=== PATIENT | female | born 1945 | race Caucasian/White ===

== ENCOUNTER 2017-02-09 14:17 | Inpatient (IN) | payer OTHER, MEDICAID ==
[~2017-02-09] VITALS: Ht 157.5 cm; Wt 51.2 kg
[~2017-02-09 14:17] MED LIST: ALBUAER3 IN; CELE100C82 PO; DULO30CA2 PO; LOSA50TA6 PO; NOR5T PO
[2017-02-09] MEDS ORDERED: ONDANSETRON HCL 4 MG/2 ML VIAL ONE (14:22)
[2017-02-09] MEDS ORDERED: MORPHINE SULFATE 4 MG/ML SYRG ONE (14:22)
[2017-02-09] MEDS ORDERED: NITROGLYCERIN 0.4 MG SL TAB SL ONE (14:26)
[2017-02-09] MEDS ORDERED: HEPARIN SODIUM (PORCINE) 5000 UNITS/ML 1ML VIAL ONE (14:28)
[2017-02-09] MEDS ORDERED: DOPAMINE HCL IV ONE (14:34)
[2017-02-09] MEDS ORDERED: ANGIOMAX 250 MG VIAL IV ONE (14:35)
[2017-02-09] MEDS ORDERED: MIDAZOLAM HCL 1MG/1ML-2 ML VIAL ONE (14:36)
[2017-02-09] MEDS ORDERED: DOPamine 1600MCG/ML 0 ML IV ONE (14:36)
[2017-02-09] MEDS ORDERED: SODIUM CHL 0.9% 0 ML ONE (14:36)
[2017-02-09] MEDS ORDERED: fentaNYL CITRATE 100 MCG/2 ML VL ONE (14:40)
[2017-02-09] MEDS ORDERED: ONDANSETRON HCL 4 MG/2 ML VIAL IV ONE (14:45)
[2017-02-09] MEDS ORDERED: HEPARIN 1,000 UNITS/ml 1ML VIAL IV ONE (14:45)
[2017-02-09] MEDS ORDERED: NITROGLYCERIN 0.4 MG SL TAB SL PRN ×2 (14:45→15:30)
[2017-02-09] MEDS ORDERED: ASPirin 81 mg TAB PO ONE (14:45)
[2017-02-09] MEDS ORDERED: DOPamine 1600MCG/ML 250 ML IV ONE (14:45)
[2017-02-09] MEDS ORDERED: MORPHINE SULFATE 4 MG/ML SYRG IV ONE (14:45)
[2017-02-09] MEDS ORDERED: LIDOCAINE 2%HCL (LOCAL ANESTH.) INJ 20ML MDV ONE (14:46)
[2017-02-09] MEDS ORDERED: IOHEXOL 350 MG/ML 100ML IJ ONE (14:46)
[2017-02-09 15:03] LABS: Basophils # (auto) 0 uL; Basophils % (auto) 0.3 % (0.0-2.0); Eosinophils # (auto) 0.1 uL; Eosinophils % (auto) 1.2 % (0.0-7.0); Hematocrit 40.7 % (36.0-46.0); Hemoglobin 13.3 g/dL (12.2-16.2); Lymphocytes # (auto) 1.9 uL; Lymphocytes % (auto) 20.8 % (10.0-50.0); Mean Corpuscular Hemoglobin 30.1 pg (28.0-32.0); Mean Corpuscular Hgb Conc. 32.8 g/dL (32.0-36.0); Mean Corpuscular Volume 91.8 fL (80.0-100.0); Monocytes # (auto) 0.5 uL; Monocytes % (auto) 5.3 % (0.0-12.0); Neutrophils # (auto) 6.4 uL; Neutrophils % (auto) 72.4 % (37.0-80.0); Platelet Count (auto) 323 10^3/uL (140-450); White Blood Cell 8.9 10^3/uL (4.4-10.8)
[2017-02-09 15:17] LABS: Partial Thromboplastin Time 24.5 sec (22.64-33.71); Prothrombin Time 10.8 sec (9.37-12.3)
[2017-02-09 15:29] LABS: Albumin 3.6 g/dL (3.4-5.0); BUN/Creatinine Ratio 18.7; Bilirubin, Total 0.2 mg/dL (0.2-1.0); Calcium 10.1 mg/dL (8.5-10.1); Magnesium 2.1 mg/dL (1.6-2.6); Potassium 3.7 mmol/L (3.5-5.1); Total Protein 7.3 g/dL (6.4-8.2)
[2017-02-09] MEDS ORDERED: MORPHINE SULF INJ 2 MG/ML SYRINGE 1ML IV PRN (15:30)
[2017-02-09] MEDS ORDERED: ONDANSETRON HCL 4 MG/2 ML VIAL IV PRN (15:30)
[2017-02-09] MEDS ORDERED: CLOP75TA28 PO (15:42)
[2017-02-09] MEDS ORDERED: METO-169 PO (15:42)
[2017-02-09] MEDS ORDERED: ENA10T PO (15:42)
[2017-02-09] MEDS ORDERED: TRIA75TA55 PO (15:42)
[2017-02-09] MEDS ORDERED: ATO40T PO (15:42)
[2017-02-09] MEDS ORDERED: DULoxetine HCL 30 MG CAP PO ONE (16:00)
[2017-02-09] MEDS ORDERED: CLOPIDOGREL BISULFATE 75 MG TAB PO ONE (16:00)
[2017-02-09] MEDS ORDERED: TRIAMTERENE/HCTZ 75/50MG TABLET PO ONE (16:00)
[2017-02-09] MEDS ORDERED: LOSARTAN POTASSIUM 50 MG TAB PO ONE (16:00)
[2017-02-09] MEDS ORDERED: CELECOXIB 100 MG CAP PO ONE (16:00)
[2017-02-09] MEDS: D5W/SOD CHL 0.45% 1,000 ML IV SCH (16:45)
[2017-02-09] MEDS: FAMOTIDINE (10MG/ML) 2ML VL IV SCH (16:47)
[2017-02-09] MEDS: HYDROcodone-ACET 5/325MG TAB PO PRN ×2 (17:49→23:04)
[2017-02-09 17:51] VITALS: BP 103/43
[2017-02-09 20:00] VITALS: BP 95/42
[2017-02-09] MEDS: ENALAPRIL MALEATE 10 MG TAB PO SCH (21:04)
[2017-02-09] MEDS: METOPROLOL SUCCINATE XL 50 MG TAB PO SCH (21:04)
[2017-02-09] MEDS ORDERED: FAMOTIDINE (10MG/ML) 2ML VL IV SCH (22:00)
[2017-02-09 23:56] VITALS: BP 113/50
[2017-02-10 04:00] VITALS: BP 129/63
[2017-02-10] MEDS: ACETAMINOPHEN 500 MG TAB PO PRN ×2 (04:04→18:41)
[2017-02-10] MEDS: LORazepam 0.5 MG TAB PO PRN ×3 (04:04→17:56)
[2017-02-10] MEDS: D5W/SOD CHL 0.45% 1,000 ML IV SCH (05:33)
[2017-02-10 08:00] VITALS: BP 149/66
[2017-02-10] MEDS: HYDROcodone-ACET 5/325MG TAB PO PRN ×3 (08:03→20:01)
[2017-02-10] MEDS: TRIAMTERENE/HCTZ 75/50MG TABLET PO SCH (10:00)
[2017-02-10] MEDS: ENALAPRIL MALEATE 10 MG TAB PO SCH ×2 (10:00→21:17)
[2017-02-10] MEDS: METOPROLOL SUCCINATE XL 50 MG TAB PO SCH ×2 (10:00→21:16)
[2017-02-10] MEDS: FAMOTIDINE (10MG/ML) 2ML VL IV SCH (10:22)
[2017-02-10] MEDS: CELECOXIB 100 MG CAP PO SCH (10:22)
[2017-02-10] MEDS: DULoxetine HCL 30 MG CAP PO SCH (10:22)
[2017-02-10] MEDS: CLOPIDOGREL BISULFATE 75 MG TAB PO SCH (10:23)
[2017-02-10] MEDS: LOSARTAN POTASSIUM 50 MG TAB PO SCH (10:23)
[2017-02-10 12:00] VITALS: BP 159/72
[2017-02-10 16:00] VITALS: BP 152/66
[2017-02-10 20:00] VITALS: BP 178/70
[2017-02-11] VITALS: BP 170/74
[2017-02-11] MEDS ORDERED: cloNIDine HCL 0.1 MG TAB PO ONE (00:15)
[2017-02-11] MEDS: ACETAMINOPHEN 500 MG TAB PO PRN (01:30)
[2017-02-11] MEDS: LORazepam 0.5 MG TAB PO PRN ×3 (01:30→16:48)
[2017-02-11 04:00] VITALS: BP 112/44
[2017-02-11] MEDS: HYDROcodone-ACET 5/325MG TAB PO PRN (07:49)
[2017-02-11 08:00] VITALS: BP 164/59
[2017-02-11] MEDS: METOPROLOL SUCCINATE XL 50 MG TAB PO SCH (10:00)
[2017-02-11] MEDS: TRIAMTERENE/HCTZ 75/50MG TABLET PO SCH (10:00)
[2017-02-11] MEDS: FAMOTIDINE (10MG/ML) 2ML VL IV SCH (10:06)
[2017-02-11] MEDS: DULoxetine HCL 30 MG CAP PO SCH (10:07)
[2017-02-11] MEDS: CLOPIDOGREL BISULFATE 75 MG TAB PO SCH (10:07)
[2017-02-11] MEDS: CELECOXIB 100 MG CAP PO SCH (10:08)
[2017-02-11] MEDS: ENALAPRIL MALEATE 10 MG TAB PO SCH (10:09)
[2017-02-11] MEDS: LOSARTAN POTASSIUM 50 MG TAB PO SCH (10:09)
[2017-02-11 12:00] VITALS: BP 167/59
[2017-02-11] MEDS ORDERED: HYDROmorphone HCL 2 MG/ML VL IV ONE (14:15)
[2017-02-11] MEDS ORDERED: methylPREDNISolone SOD SUCC 125 MG/2 ML VL IV ONE (14:15)
[2017-02-11] MEDS ORDERED: METHOCARBAMOL 500 MG TAB PO ONE (14:15)
[2017-02-11 16:00] VITALS: BP_SYST 142; BP_SYST 159; BP_DIAS 55
== END 2017-02-11 18:45 | disposition home or self-care (01) | DRG 280 ==
LOC: EDBD 14:17 → ER 14:20 → CATH 14:44 → ICU CENTRL 14:45 → DOU IN ICU 17:50
PROVIDERS: ADMIT Specialist; ATTEND Internal Medicine
PROC: 4A023N7 Measurement of Cardiac Sampling and Pressure, Left Heart, Percutaneous Approach (ICD-10-PCS; principal; 2017-02-09)
PROC: B2111ZZ Fluoroscopy of Multiple Coronary Arteries using Low Osmolar Contrast (ICD-10-PCS; 2017-02-09)
PROC: B2151ZZ Fluoroscopy of Left Heart using Low Osmolar Contrast (ICD-10-PCS; 2017-02-09)
PROC: 5A2204Z Restoration of Cardiac Rhythm, Single (ICD-10-PCS; 2017-02-09)
DX: I21.09 ST elevation (STEMI) myocardial infarction involving other coronary artery of anterior wall (principal); I49.01 Ventricular fibrillation; F17.210 Nicotine dependence, cigarettes, uncomplicated; I10 Essential (primary) hypertension; F41.9 Anxiety disorder, unspecified; I25.10 Atherosclerotic heart disease of native coronary artery without angina pectoris; F32.9 Major depressive disorder, single episode, unspecified; M19.90 Unspecified osteoarthritis, unspecified site; J44.9 Chronic obstructive pulmonary disease, unspecified; Z82.0 Family history of epilepsy and other diseases of the nervous system; Z82.49 Family history of ischemic heart disease and other diseases of the circulatory system; Z98.61 Coronary angioplasty status
CPT/HCPCS: 36415; 71010; 80053; 82962; 83735; 84484; 85025; 85610; 85730; 87081; 93005; 93458; 96372; 96374; 96375; 99152; 99291; J1265; J2250; J2405; J3490

== ENCOUNTER 2017-02-13 10:01 | Emergency (ER) | payer OTHER, MEDICAID ==
[~2017-02-13] VITALS: Ht 165.1 cm; Wt 63.5 kg
[~2017-02-13 10:01] MED LIST changes: +ATO40T PO; +CLOP75TA28 PO; +ENA10T PO; +METO-169 PO; +TRIA75TA55 PO
[2017-02-13] MEDS ORDERED: LORazepam 2MG/ML-1ML VIAL IV ONE (10:15)
[2017-02-13] MEDS ORDERED: cloNIDine HCL 0.1 MG TAB PO ONE (10:45)
[2017-02-13 10:53] LABS: Urine Bilirubin Negative (Negative); Urine Blood Negative /uL (Negative); Urine Color Yellow (Yellow); Urine Glucose Normal (Normal); Urine Ketone Negative (Negative); Urine Nitrite Negative (Negative); Urine RBC 1 /hpf (0 - 4); Urine Squamous Epithelial Cell FEW /hpf (<5); Urine Urobilinogen Normal (Negative); Urine pH 5.5 (5.0-8.0)
[2017-02-13 12:37] VITALS: BP 137/67
== END 2017-02-13 14:04 | disposition home or self-care (01) ==
LOC: EDBD 10:01 → ER 10:04
DX: F41.9 Anxiety disorder, unspecified (principal); N39.0 Urinary tract infection, site not specified; I10 Essential (primary) hypertension; J44.9 Chronic obstructive pulmonary disease, unspecified; E78.5 Hyperlipidemia, unspecified; M06.9 Rheumatoid arthritis, unspecified; I25.10 Atherosclerotic heart disease of native coronary artery without angina pectoris; Z90.710 Acquired absence of both cervix and uterus; F17.210 Nicotine dependence, cigarettes, uncomplicated; F12.10 Cannabis abuse, uncomplicated; Z90.49 Acquired absence of other specified parts of digestive tract; Z82.49 Family history of ischemic heart disease and other diseases of the circulatory system; Z79.899 Other long term (current) drug therapy
CPT/HCPCS: 36415; 81001; 84484; 93005; 96374; 99285; J2060

== ENCOUNTER 2017-02-14 14:21 | Emergency (ER) | payer OTHER, MEDICAID ==
[~2017-02-14] VITALS: Ht 157.5 cm; Wt 63.5 kg
[2017-02-14] MEDS ORDERED: LORazepam 2MG/ML-1ML VIAL IM ONE (16:30)
[2017-02-14 17:05] VITALS: BP 140/63
[2017-02-14] MEDS ORDERED: HYDROcodone-ACET 10/325MG TAB PO ONE (17:30)
== END 2017-02-14 18:20 | disposition home or self-care (01) ==
LOC: EDBD 14:21 → ER 14:27
DX: F41.9 Anxiety disorder, unspecified (principal); I10 Essential (primary) hypertension; J44.9 Chronic obstructive pulmonary disease, unspecified; F32.9 Major depressive disorder, single episode, unspecified; F17.210 Nicotine dependence, cigarettes, uncomplicated; F12.10 Cannabis abuse, uncomplicated; M19.90 Unspecified osteoarthritis, unspecified site; I25.810 Atherosclerosis of coronary artery bypass graft(s) without angina pectoris; Z79.899 Other long term (current) drug therapy
CPT/HCPCS: 96372; 99283; J2060

== ENCOUNTER 2017-08-08 01:22 | Inpatient (IN) | payer OTHER, MEDICAID ==
[~2017-08-08] VITALS: Ht 157.5 cm; Wt 51.9 kg
[~2017-08-08 01:22] MED LIST changes: +HYDR-4683 PO; -NOR5T PO
[2017-08-08] MEDS ORDERED: ONDANSETRON ODT 4 MG TAB PO ONE ×2 (01:36→01:45)
[2017-08-08] MEDS ORDERED: cloNIDine HCL 0.1 MG TAB ONE (01:36)
[2017-08-08 01:43] LABS: Basophils # (auto) 0 uL; Basophils % (auto) 0.3 % (0.0-2.0); Eosinophils # (auto) 0.1 uL; Eosinophils % (auto) 0.5 % (0.0-7.0); Hematocrit 47.3 % (36.0-46.0); Hemoglobin 16.1 g/dL (12.2-16.2); Lymphocytes # (auto) 1.6 uL; Lymphocytes % (auto) 11.6 % (10.0-50.0); Mean Corpuscular Hemoglobin 31.6 pg (28.0-32.0); Mean Corpuscular Volume 92.9 fL (80.0-100.0); Monocytes # (auto) 0.4 uL; Neutrophils % (auto) 84.6 % (37.0-80.0); Nucleated Red Blood Cells % 0.1 %; Platelet Count (auto) 320 10^3/uL (140-450); Red Blood Cells 5.08 10^6/uL (4.0-5.20); White Blood Cell 14.2 10^3/uL (4.4-10.8)
[2017-08-08] MEDS ORDERED: cloNIDine HCL 0.1 MG TAB PO ONE ×2 (01:45→13:15)
[2017-08-08 01:59] LABS: INR 1.02 (0.9-1.15); Partial Thromboplastin Time 22.6 sec (22.64-33.71); Prothrombin Time 11.1 sec (9.37-12.3)
[2017-08-08 02:01] LABS: Albumin 3.7 g/dL (3.4-5.0); Amylase 32 U/L (25-115); Anion Gap 14 (5-15); BUN/Creatinine Ratio 13.6; Blood Urea Nitrogen 11 mg/dL (7-18); Calcium 10.4 mg/dL (8.5-10.1); Carbon Dioxide 22 mmol/L (21-32); Chloride 102 mmol/L (98-107); GFR African American 89 mL/min; GFR Non-African American 74 mL/min; Glucose 207 mg/dL (74-106); Lipase 87 U/L (73-393); Sodium 138 mmol/L (136-145)
[2017-08-08 02:04] LABS: Alanine Aminotransferase 23 U/L (13-56); Alkaline Phosphatase 107 U/L (45-117); Aspartate Aminotransferase 25 U/L (15-37); Bilirubin, Total 0.5 mg/dL (0.2-1.0); Total Protein 8.2 g/dL (6.4-8.2)
[2017-08-08] MEDS ORDERED: LORazepam 2MG/ML-1ML VIAL IV ONE (02:30)
[2017-08-08] MEDS ORDERED: KETOROLAC TROMETH 30 MG/ML 1ML VIAL IV ONE (02:30)
[2017-08-08] MEDS ORDERED: LABETALOL HCL 5 MG/ML ML 20ML VIAL IV ONE (03:30)
[2017-08-08] MEDS ORDERED: metroNIDAZOLE 500MG/100ML 100 ML IV ONE (04:00)
[2017-08-08] MEDS ORDERED: cefTRIAXone 1GM/50ML D5W 50 ML IV ONE (04:00)
[2017-08-08] MEDS: POTASSIUM CHL 20MEQ/50ML 50 ML IV SCH ×2 (04:24→05:57)
[2017-08-08 04:47] LABS: Lactic Acid w/Reflex 2.3 mmol/L (0.4-2.0)
[2017-08-08] MEDS: NICARDIPINE 25MG/250ML BAG KIT 250 ML IV SCH ×3 (05:03→14:30)
[2017-08-08 06:48] LABS: Urine Bacteria FEW /hpf (None Seen); Urine Blood TRACE /uL (Negative); Urine Specific Gravity 1.007 (1.001-1.035); Urine WBC <1 /hpf (0 - 5)
[2017-08-08] MEDS ORDERED: DEXTROSE (50%) 50ML SYRG IV PRN (07:15)
[2017-08-08] MEDS ORDERED: ONDANSETRON HCL 4 MG/2 ML VIAL IV PRN (07:15)
[2017-08-08] MEDS: LORazepam 2MG/ML-1ML VIAL IV PRN (08:05)
[2017-08-08] MEDS: IPRATROPIUM BROM 0.5 MG/2.5ML INH SOL NEB SCH ×3 (08:30→18:16)
[2017-08-08] MEDS: ALBUTEROL SULF 2.5 MG/0.5ML(0.5%) NEB SOLN NEB SCH ×3 (08:30→18:16)
[2017-08-08] MEDS ORDERED: ENALAPRIL MALEATE 10 MG TAB PO SCH (10:00)
[2017-08-08] MEDS ORDERED: METOPROLOL SUCCINATE XL 50 MG TAB PO SCH (10:00)
[2017-08-08] MEDS: GABAPENTIN 300 MG CAP PO SCH ×2 (10:17→21:51)
[2017-08-08] MEDS: LOSARTAN POTASSIUM 50 MG TAB PO SCH (10:18)
[2017-08-08] MEDS: DULoxetine HCL 30 MG CAP PO SCH (10:18)
[2017-08-08] MEDS: CLOPIDOGREL BISULFATE 75 MG TAB PO SCH (10:18)
[2017-08-08] MEDS: InsuLIN REG 1unit/0.01ml Soln (100units/ml) SC SCH ×3 (11:30→21:59)
[2017-08-08] MEDS: ACCU-CHEK COMFORT CURVE STRIP VI SCH ×3 (11:34→21:59)
[2017-08-08] MEDS ORDERED: LABETALOL HCL 200 MG TAB PO ONE (13:15)
[2017-08-08] MEDS: HYDROcodone-ACET 10/325MG TAB PO PRN ×2 (13:45→21:51)
[2017-08-08 14:21] VITALS: BP 153/116
[2017-08-08] MEDS ORDERED: LABETALOL HCL 200 MG TAB PO PRN (19:30)
[2017-08-08 20:00] VITALS: BP 100/46
[2017-08-08 21:45] VITALS: BP 100/46
[2017-08-08] MEDS: cloNIDine HCL 0.1 MG TAB PO SCH (21:51)
[2017-08-08] MEDS: ATORVASTATIN 20 MG TAB PO SCH (21:51)
[2017-08-08] MEDS ORDERED: cloNIDine HCL 0.1 MG TAB PO SCH (22:00)
[2017-08-08] MEDS ORDERED: LABETALOL HCL 200 MG TAB PO SCH (22:00)
[2017-08-09] MEDS ORDERED: ASPI81TA27 PO (00:52)
[2017-08-09] MEDS ORDERED: CLON0.1T PO (00:52)
[2017-08-09] MEDS: ALBUTEROL SULF 2.5 MG/0.5ML(0.5%) NEB SOLN NEB SCH ×4 (01:00→18:47)
[2017-08-09] MEDS: IPRATROPIUM BROM 0.5 MG/2.5ML INH SOL NEB SCH ×4 (01:00→18:47)
[2017-08-09 05:16] VITALS: BP 123/50
[2017-08-09] MEDS: cloNIDine HCL 0.1 MG TAB PO SCH ×3 (05:38→22:46)
[2017-08-09] MEDS: InsuLIN REG 1unit/0.01ml Soln (100units/ml) SC SCH ×4 (06:04→22:00)
[2017-08-09] MEDS: ACCU-CHEK COMFORT CURVE STRIP VI SCH ×4 (06:04→23:11)
[2017-08-09] MEDS: HYDROcodone-ACET 10/325MG TAB PO PRN ×2 (06:29→16:43)
[2017-08-09 08:55] VITALS: BP 119/60
[2017-08-09] MEDS: GABAPENTIN 300 MG CAP PO SCH ×2 (10:31→22:46)
[2017-08-09] MEDS: CLOPIDOGREL BISULFATE 75 MG TAB PO SCH (10:31)
[2017-08-09] MEDS: LOSARTAN POTASSIUM 50 MG TAB PO SCH (10:31)
[2017-08-09] MEDS: DULoxetine HCL 30 MG CAP PO SCH (10:31)
[2017-08-09 12:26] VITALS: BP 139/56
[2017-08-09 16:38] VITALS: BP 151/61
[2017-08-09 21:34] VITALS: BP 140/122
[2017-08-09] MEDS: ATORVASTATIN 20 MG TAB PO SCH (22:46)
[2017-08-09] MEDS: LORazepam 2MG/ML-1ML VIAL IV PRN (22:56)
[2017-08-10] MEDS: ALBUTEROL SULF 2.5 MG/0.5ML(0.5%) NEB SOLN NEB SCH ×3 (00:07→10:57)
[2017-08-10] MEDS: IPRATROPIUM BROM 0.5 MG/2.5ML INH SOL NEB SCH ×3 (00:07→10:57)
[2017-08-10] MEDS: HYDROcodone-ACET 10/325MG TAB PO PRN (04:34)
[2017-08-10] MEDS: cloNIDine HCL 0.1 MG TAB PO SCH (05:18)
[2017-08-10 05:25] VITALS: BP 188/79
[2017-08-10 05:30] VITALS: BP 164/95
[2017-08-10 06:30] VITALS: BP 142/67
[2017-08-10] MEDS: InsuLIN REG 1unit/0.01ml Soln (100units/ml) SC SCH ×2 (06:57→11:30)
[2017-08-10] MEDS: ACCU-CHEK COMFORT CURVE STRIP VI SCH ×2 (06:58→11:30)
[2017-08-10 07:30] VITALS: BP 142/67
[2017-08-10 09:00] VITALS: BP 186/69
[2017-08-10] MEDS: LOSARTAN POTASSIUM 50 MG TAB PO SCH (09:00)
[2017-08-10] MEDS: DULoxetine HCL 30 MG CAP PO SCH (09:02)
[2017-08-10] MEDS: GABAPENTIN 300 MG CAP PO SCH (09:02)
[2017-08-10] MEDS: CLOPIDOGREL BISULFATE 75 MG TAB PO SCH (09:02)
[2017-08-10] MEDS: LORazepam 2MG/ML-1ML VIAL IV PRN (10:37)
[2017-08-10 11:14] VITALS: BP 186/69
== END 2017-08-10 13:00 | disposition home or self-care (01) | DRG 872 ==
LOC: EDBD 01:22 → ER 01:24 → TELE 01:25 → TELE-WESTW 19:55
PROVIDERS: ADMIT Nurse Practitioner Family; ATTEND Internal Medicine
DX: A41.9 Sepsis, unspecified organism (principal); J44.1 Chronic obstructive pulmonary disease with (acute) exacerbation; F17.210 Nicotine dependence, cigarettes, uncomplicated; F41.0 Panic disorder [episodic paroxysmal anxiety]; G89.4 Chronic pain syndrome; I10 Essential (primary) hypertension; I25.10 Atherosclerotic heart disease of native coronary artery without angina pectoris; M48.00 Spinal stenosis, site unspecified; M19.90 Unspecified osteoarthritis, unspecified site; F32.9 Major depressive disorder, single episode, unspecified; Z90.710 Acquired absence of both cervix and uterus; Z82.0 Family history of epilepsy and other diseases of the nervous system; Z82.49 Family history of ischemic heart disease and other diseases of the circulatory system
CPT/HCPCS: 36415; 71010; 80053; 81001; 82150; 82962; 83036; 83605; 83690; 83735; 83880; 84484; 85025; 85610; 85730; 87040; 93005; 94640; 96361; 96365; 96367; 96375; J0696; J1815; J1885; J2405; J3490; Q0162

== ENCOUNTER 2017-11-27 19:54 | Inpatient (IN) | payer OTHER, MEDICAID ==
[~2017-11-27] VITALS: Ht 160 cm; Wt 50.5 kg
[~2017-11-27 19:54] MED LIST changes: +ASPI81TA27 PO; +CLON0.1T PO; -CLOP75TA28 PO; -ENA10T PO; -METO-169 PO; -TRIA75TA55 PO
[2017-11-27 20:47] LABS: Eosinophils # (auto) 0 uL; Nucleated Red Blood Cells % 0.4 %
[2017-11-27 20:48] LABS: Basophils # (auto) 0.5 uL; Basophils % (auto) 1.8 % (0.0-2.0); Hemoglobin 19.3 g/dL (12.2-16.2); Lymphocytes % (auto) 7.7 % (10.0-50.0); Mean Corpuscular Hemoglobin 30.6 pg (28.0-32.0); Mean Corpuscular Hgb Conc. 32.5 g/dL (32.0-36.0); Mean Corpuscular Volume 94.3 fL (80.0-100.0); Monocytes # (auto) 1.3 uL; Monocytes % (auto) 4.8 % (0.0-12.0); Neutrophils # (auto) 22.4 uL; Neutrophils % (auto) 85.7 % (37.0-80.0); Platelet Count (auto) 411 10^3/uL (140-450); Red Blood Cells 6.32 10^6/uL (4.0-5.20); Red Cell Distribution Width 15.5 % (11.8-14.3); White Blood Cell 26.2 10^3/uL (4.4-10.8)
[2017-11-27 20:49] LABS: INR 1.09 (0.9-1.15); Prothrombin Time 11.9 sec (9.37-12.3)
[2017-11-27 20:50] LABS: Hematocrit 59.6 % (36.0-46.0)
[2017-11-27 20:59] LABS: Sodium 136 mmol/L (136-145)
[2017-11-27 21:00] LABS: Anion Gap 19 (5-15); Blood Urea Nitrogen 20 mg/dL (7-18); Carbon Dioxide 16 mmol/L (21-32); Chloride 101 mmol/L (98-107); Glucose 225 mg/dL (74-106)
[2017-11-27 21:01] LABS: Alanine Aminotransferase 25 U/L (13-56); Alkaline Phosphatase 111 U/L (45-117); Aspartate Aminotransferase 49 U/L (15-37); BUN/Creatinine Ratio 10.2; GFR African American 32 mL/min; GFR Non-African American 26 mL/min
[2017-11-27 21:02] LABS: Calcium 9.4 mg/dL (8.5-10.1)
[2017-11-27 21:03] LABS: Bilirubin, Total < 0.2 mg/dL (0.2-1.0); Total Protein 8.6 g/dL (6.4-8.2)
[2017-11-27 21:04] LABS: Albumin 3.5 g/dL (3.4-5.0); Magnesium 1.9 mg/dL (1.6-2.6)
[2017-11-27 21:05] LABS: Urine Bacteria NONE SEEN /hpf (None Seen); Urine Blood 2+ /uL (Negative); Urine Mucus FEW (None Seen); Urine WBC 17 /hpf (0 - 5)
[2017-11-27 21:07] LABS: Potassium 2.9 mmol/L (3.5-5.1)
[2017-11-27] MEDS ORDERED: MORPHINE SULFATE 4 MG/ML SYR/VIAL IV ONE (21:15)
[2017-11-27] MEDS ORDERED: SODIUM CHLORIDE 0.9% 1,000 ML IV ONE (21:15)
[2017-11-27] MEDS ORDERED: ASPirin 81 mg TAB PO ONE (21:15)
[2017-11-27] MEDS ORDERED: ONDANSETRON HCL 4 MG/2 ML VIAL IV ONE (21:15)
[2017-11-27] MEDS ORDERED: POTASSIUM CHL 20MEQ/100ML 200 ML IV ONE (21:17)
[2017-11-27] MEDS: POTASSIUM CHL 20MEQ/100ML 100 ML IV SCH ×2 (21:32→23:22)
[2017-11-27] MEDS ORDERED: MORPHINE SULFATE 4 MG/ML SYR/VIAL IV PRN (23:45)
[2017-11-27] MEDS ORDERED: ONDANSETRON HCL 4 MG/2 ML VIAL IV PRN (23:45)
[2017-11-27] MEDS ORDERED: NITROGLYCERIN 0.4 MG SL TAB SL PRN (23:45)
[2017-11-28] MEDS: MORPHINE SULFATE 4 MG/ML SYR/VIAL IV PRN (00:40)
[2017-11-28 00:48] LABS: BUN/Creatinine Ratio 17.1; Potassium 3.8 mmol/L (3.5-5.1)
[2017-11-28] MEDS ORDERED: clonazePAM 0.5 MG TAB PO PRN (04:15)
[2017-11-28] MEDS ORDERED: ENOXAPARIN SOD 60 MG/0.6 ML SYRINGE SC ONE ×2 (04:15→04:28)
[2017-11-28] MEDS ORDERED: HYDROcodone-ACET 5/325MG TAB PO PRN (04:45)
[2017-11-28] MEDS ORDERED: ACETAMINOPHEN 500 MG TAB PO PRN (04:45)
[2017-11-28] MEDS ORDERED: cefTRIAXone 1GM/10ml IVPUSH 10 ML IV ONE (06:00)
[2017-11-28 06:49] LABS: Hemoglobin 17.9 g/dL (12.2-16.2); Platelet Count (auto) 381 10^3/uL (140-450)
[2017-11-28 06:51] LABS: Hematocrit 53.6 % (36.0-46.0); Mean Corpuscular Hemoglobin 31.4 pg (28.0-32.0); Mean Corpuscular Hgb Conc. 33.5 g/dL (32.0-36.0); Mean Corpuscular Volume 93.7 fL (80.0-100.0); Red Blood Cells 5.72 10^6/uL (4.0-5.20); Red Cell Distribution Width 15.2 % (11.8-14.3); White Blood Cell 26.1 10^3/uL (4.4-10.8)
[2017-11-28 07:06] LABS: Eosinophils % (manual) 0 (0-7)
[2017-11-28 07:07] LABS: Basophils % (manual) 0 (0.0-2.0); Blast Cells 0; Metamyelocytes % 0; Myelocytes % 0; Promyelocytes % 0; Reactive Lymphocytes 0
[2017-11-28 08:10] LABS: Band Neutrophils % (manual) 3; Lymphocytes % (manual) 8 (10.0-50.0); Monocytes % (manual) 5 (0-12)
[2017-11-28] MEDS: ASPirin-EC 81 mg tab PO SCH (09:40)
[2017-11-28] MEDS: FUROSEMIDE 40 MG/4 ML VIAL IV SCH (09:43)
[2017-11-28] MEDS: GABAPENTIN 300 MG CAP PO SCH ×2 (09:44→22:00)
[2017-11-28] MEDS: METOPROLOL TARTRATE 25 MG TAB PO SCH ×2 (09:44→22:00)
[2017-11-28 11:17] LABS: Hemoglobin 18.1 g/dL (12.2-16.2)
[2017-11-28 11:19] LABS: Hematocrit 54.8 % (36.0-46.0)
[2017-11-28] MEDS: ATORVASTATIN 20 MG TAB PO SCH (22:00)
[2017-11-28] MEDS: PANTOPRAZOLE 40 MG/10 ML VIAL IV SCH (22:00)
[2017-11-29] MEDS ORDERED: cefTRIAXone 1GM/10ml IVPUSH 10 ML IV SCH (09:00)
[2017-11-29 09:21] LABS: Platelet Count (auto) 266 10^3/uL (140-450)
[2017-11-29 09:24] LABS: Hematocrit 51.1 % (36.0-46.0); Hemoglobin 16.4 g/dL (12.2-16.2); Mean Corpuscular Hgb Conc. 32.1 g/dL (32.0-36.0); Mean Corpuscular Volume 96.4 fL (80.0-100.0); Red Cell Distribution Width 15.9 % (11.8-14.3)
[2017-11-29] MEDS: MORPHINE SULFATE 4 MG/ML SYR/VIAL IV PRN ×5 (09:57→22:38)
[2017-11-29] MEDS: FUROSEMIDE 40 MG/4 ML VIAL IV SCH (10:27)
[2017-11-29] MEDS: ASPirin-EC 81 mg tab PO SCH (10:27)
[2017-11-29] MEDS: PANTOPRAZOLE 40 MG/10 ML VIAL IV SCH ×2 (10:27→22:39)
[2017-11-29] MEDS: METOPROLOL TARTRATE 25 MG TAB PO SCH ×2 (10:28→22:40)
[2017-11-29] MEDS: GABAPENTIN 300 MG CAP PO SCH ×2 (10:28→22:40)
[2017-11-29 10:31] LABS: White Blood Cell 31.3 10^3/uL (4.4-10.8)
[2017-11-29 10:32] LABS: Band Neutrophils % (manual) 0; Basophils % (manual) 0 (0.0-2.0); Blast Cells 0; Eosinophils % (manual) 0 (0-7); Metamyelocytes % 0; Myelocytes % 0; Promyelocytes % 0; Reactive Lymphocytes 0
[2017-11-29 12:30] VITALS: BP 148/72
[2017-11-29 14:30] LABS: Lymphocytes % (manual) 5 (10.0-50.0); Monocytes % (manual) 12 (0-12)
[2017-11-29] MEDS: DOXYCYCLINE HYC 100MG/250ML 250 ML IV SCH (15:15)
[2017-11-29 16:58] VITALS: BP 136/59
[2017-11-29] MEDS: ATORVASTATIN 20 MG TAB PO SCH (22:39)
[2017-11-29 22:51] VITALS: BP 152/71
[2017-11-30] MEDS: DOXYCYCLINE HYC 100MG/250ML 250 ML IV SCH ×2 (03:22→15:00)
[2017-11-30 05:27] VITALS: BP 134/69
[2017-11-30 06:40] LABS: Basophils # (auto) 0 uL; Basophils % (auto) 0.1 % (0.0-2.0); Eosinophils # (auto) 0 uL; Eosinophils % (auto) 0.1 % (0.0-7.0); Hematocrit 42.5 % (36.0-46.0); Hemoglobin 14.1 g/dL (12.2-16.2); Lymphocytes # (auto) 1.3 uL; Lymphocytes % (auto) 7.5 % (10.0-50.0); Mean Corpuscular Hemoglobin 30.9 pg (28.0-32.0); Mean Corpuscular Hgb Conc. 33.2 g/dL (32.0-36.0); Mean Corpuscular Volume 93.2 fL (80.0-100.0); Monocytes # (auto) 1.2 uL; Monocytes % (auto) 6.8 % (0.0-12.0); Neutrophils # (auto) 14.6 uL; Neutrophils % (auto) 85.5 % (37.0-80.0); Platelet Count (auto) 273 10^3/uL (140-450); Red Blood Cells 4.56 10^6/uL (4.0-5.20); Red Cell Distribution Width 14.8 % (11.8-14.3); White Blood Cell 17.1 10^3/uL (4.4-10.8)
[2017-11-30 06:52] LABS: Albumin 2.5 g/dL (3.4-5.0); BUN/Creatinine Ratio 30.5; Bilirubin, Total 0.3 mg/dL (0.2-1.0); Calcium 8.6 mg/dL (8.5-10.1); Potassium 3.8 mmol/L (3.5-5.1); Total Protein 6.7 g/dL (6.4-8.2)
[2017-11-30] MEDS: MORPHINE SULFATE 4 MG/ML SYR/VIAL IV PRN ×4 (09:06→22:07)
[2017-11-30 09:07] VITALS: BP 155/82
[2017-11-30] MEDS: ASPirin-EC 81 mg tab PO SCH (09:51)
[2017-11-30] MEDS: PANTOPRAZOLE 40 MG/10 ML VIAL IV SCH ×2 (09:51→22:08)
[2017-11-30] MEDS: LEVOFLOXACIN 250MG 50 ML IV SCH (09:51)
[2017-11-30] MEDS: FUROSEMIDE 40 MG/4 ML VIAL IV SCH (09:51)
[2017-11-30] MEDS: METOPROLOL TARTRATE 25 MG TAB PO SCH ×2 (09:52→22:16)
[2017-11-30] MEDS: GABAPENTIN 300 MG CAP PO SCH ×2 (09:52→22:08)
[2017-11-30 12:49] VITALS: BP 129/82
[2017-11-30 17:41] VITALS: BP 145/66
[2017-11-30 22:00] VITALS: BP 159/76
[2017-11-30] MEDS: ATORVASTATIN 20 MG TAB PO SCH (22:08)
[2017-12-01] MEDS: DOXYCYCLINE HYC 100MG/250ML 250 ML IV SCH ×2 (03:10→15:00)
[2017-12-01] MEDS: MORPHINE SULFATE 4 MG/ML SYR/VIAL IV PRN ×2 (03:19→10:17)
[2017-12-01 05:30] VITALS: BP 144/90
[2017-12-01 06:41] LABS: Basophils # (auto) 0 uL; Basophils % (auto) 0.1 % (0.0-2.0); Eosinophils # (auto) 0 uL; Eosinophils % (auto) 0.3 % (0.0-7.0); Hematocrit 40.9 % (36.0-46.0); Hemoglobin 13.5 g/dL (12.2-16.2); Lymphocytes # (auto) 1.9 uL; Lymphocytes % (auto) 11.7 % (10.0-50.0); Mean Corpuscular Hemoglobin 30.9 pg (28.0-32.0); Mean Corpuscular Hgb Conc. 32.9 g/dL (32.0-36.0); Monocytes # (auto) 1.2 uL; Monocytes % (auto) 7.3 % (0.0-12.0); Neutrophils % (auto) 80.6 % (37.0-80.0); Nucleated Red Blood Cells % 0.1 %; Platelet Count (auto) 278 10^3/uL (140-450); Red Blood Cells 4.36 10^6/uL (4.0-5.20); Red Cell Distribution Width 14.3 % (11.8-14.3); White Blood Cell 16.1 10^3/uL (4.4-10.8)
[2017-12-01 07:06] LABS: Potassium 3.3 mmol/L (3.5-5.1)
[2017-12-01 07:11] LABS: Albumin 2.5 g/dL (3.4-5.0)
[2017-12-01 07:15] LABS: Bilirubin, Total 0.3 mg/dL (0.2-1.0); Total Protein 6.4 g/dL (6.4-8.2)
[2017-12-01] MEDS ORDERED: SODIUM CHLORIDE LOCK 10 ML ONE (08:02)
[2017-12-01] MEDS ORDERED: ONDANSETRON HCL 4 MG/2 ML VIAL ONE (08:02)
[2017-12-01] MEDS ORDERED: MIDAZOLAM HCL 1MG/1ML-2 ML VIAL ONE (08:02)
[2017-12-01] MEDS ORDERED: PROPOFOL 10 MG/ML 20 ML IV ONE (08:02)
[2017-12-01] MEDS ORDERED: fentaNYL CITRATE 100 MCG/2 ML VL ONE (08:02)
[2017-12-01 08:29] VITALS: BP 164/80
[2017-12-01] MEDS ORDERED: METOCLOPRAMIDE HCL 5MG/ml INJ 2ml VIAL IV ONE (08:30)
[2017-12-01] MEDS ORDERED: HYDROmorphone HCL 2 MG/ML VL IV PRN (08:30)
[2017-12-01] MEDS ORDERED: PANTOPRAZOLE 40 MG TAB PO SCH (10:00)
[2017-12-01] MEDS: GABAPENTIN 300 MG CAP PO SCH (10:04)
[2017-12-01] MEDS: LEVOFLOXACIN 250MG 50 ML IV SCH (10:04)
[2017-12-01] MEDS: ASPirin-EC 81 mg tab PO SCH (10:04)
[2017-12-01] MEDS: METOPROLOL TARTRATE 25 MG TAB PO SCH (10:08)
[2017-12-01] MEDS: FUROSEMIDE 40 MG/4 ML VIAL IV SCH (10:10)
[2017-12-01] MEDS ORDERED: POTASSIUM CHL 20 Meq TABLET PO ONE (10:45)
[2017-12-01 11:46] VITALS: BP 149/62
[2017-12-01 14:24] VITALS: BP 182/74
[2017-12-01 17:03] VITALS: BP 129/62
== END 2017-12-01 18:10 | DRG 871 ==
LOC: EDBD 19:54 → ER 19:54 → OVERFLOW 19:55 → TELE-WESTW 11-29 12:06
PROVIDERS: ADMIT Nurse Practitioner Family; ATTEND Internal Medicine
PROC: 0DB68ZX Excision of Stomach, Via Natural or Artificial Opening Endoscopic, Diagnostic (ICD-10-PCS; principal; 2017-12-01 08:54)
DX: A41.9 Sepsis, unspecified organism (principal); I50.33 Acute on chronic diastolic (congestive) heart failure; I21.4 Non-ST elevation (NSTEMI) myocardial infarction; N17.9 Acute kidney failure, unspecified; K25.4 Chronic or unspecified gastric ulcer with hemorrhage; D75.1 Secondary polycythemia; J44.9 Chronic obstructive pulmonary disease, unspecified; E78.5 Hyperlipidemia, unspecified; E87.6 Hypokalemia; F17.210 Nicotine dependence, cigarettes, uncomplicated; F32.9 Major depressive disorder, single episode, unspecified; F41.9 Anxiety disorder, unspecified; M19.90 Unspecified osteoarthritis, unspecified site; K57.30 Diverticulosis of large intestine without perforation or abscess without bleeding; M48.061 Spinal stenosis, lumbar region without neurogenic claudication; I11.0 Hypertensive heart disease with heart failure; I25.10 Atherosclerotic heart disease of native coronary artery without angina pectoris; K20.9 Esophagitis, unspecified; K44.9 Diaphragmatic hernia without obstruction or gangrene; Z79.82 Long term (current) use of aspirin; Z82.0 Family history of epilepsy and other diseases of the nervous system; Z82.49 Family history of ischemic heart disease and other diseases of the circulatory system; Z90.710 Acquired absence of both cervix and uterus; Z79.899 Other long term (current) drug therapy; Z90.89 Acquired absence of other organs; Z95.5 Presence of coronary angioplasty implant and graft; Z80.8 Family history of malignant neoplasm of other organs or systems
CPT/HCPCS: 36415; 43239; 71045; 74176; 80048; 80053; 81001; 82270; 83036; 83690; 83735; 83880; 84484; 85007; 85014; 85018; 85025; 85027; 85379; 85610; 85730; 87040; 87086; 87804; 93005; 94761; 96372; 96374; 96375; 96376; C9113; G0378; J2250; J2405; J2704; J3480; J3490

== ENCOUNTER 2018-02-05 19:44 | Inpatient (IN) | payer OTHER, MEDICAID ==
[~2018-02-05] VITALS: Ht 160 cm; Wt 56.9 kg
[2018-02-05 20:51] LABS: Basophils # (auto) 0.1 uL; Basophils % (auto) 0.6 % (0.0-2.0); Eosinophils # (auto) 0 uL; Hematocrit 52.1 % (36.0-46.0); Hemoglobin 16.9 g/dL (12.2-16.2); Lymphocytes # (auto) 1.7 uL; Lymphocytes % (auto) 6.9 % (10.0-50.0); Mean Corpuscular Hemoglobin 29.3 pg (28.0-32.0); Mean Corpuscular Hgb Conc. 32.4 g/dL (32.0-36.0); Mean Corpuscular Volume 90.4 fL (80.0-100.0); Monocytes # (auto) 0.7 uL; Monocytes % (auto) 2.9 % (0.0-12.0); Neutrophils # (auto) 21.8 uL; Neutrophils % (auto) 89.6 % (37.0-80.0); Nucleated Red Blood Cells % 0.1 %; Platelet Count (auto) 449 10^3/uL (140-450); Red Blood Cells 5.76 10^6/uL (4.0-5.20); Red Cell Distribution Width 15.3 % (11.8-14.3); White Blood Cell 24.3 10^3/uL (4.4-10.8)
[2018-02-05 21:05] LABS: INR 1.04 (0.9-1.15); Partial Thromboplastin Time 22.6 sec (22.64-33.71); Prothrombin Time 11.3 sec (9.37-12.3)
[2018-02-05 21:08] LABS: Lactic Acid w/Reflex 4.1 mmol/L (0.4-2.0)
[2018-02-05 21:09] LABS: Alanine Aminotransferase 32 U/L (13-56); Albumin 4.4 g/dL (3.4-5.0); Alkaline Phosphatase 117 U/L (45-117); Anion Gap 18 (5-15); Aspartate Aminotransferase 44 U/L (15-37); BUN/Creatinine Ratio 10.1; Bilirubin, Total 0.4 mg/dL (0.2-1.0); Blood Alcohol < 3.0 mg/dL (0-5); Blood Urea Nitrogen 10 mg/dL (7-18); Calcium 10.7 mg/dL (8.5-10.1); Carbon Dioxide 20 mmol/L (21-32); Chloride 106 mmol/L (98-107); GFR African American 71 mL/min; GFR Non-African American 58 mL/min; Glucose 253 mg/dL (74-106); Magnesium 1.8 mg/dL (1.6-2.6); Sodium 144 mmol/L (136-145); Total Protein 9.1 g/dL (6.4-8.2)
[2018-02-05] MEDS ORDERED: SODIUM CHLORIDE 0.9% 1,000 ML IV ONE (21:15)
[2018-02-05] MEDS ORDERED: VANCOMYCIN 1GM/250ML 250 ML IV ONE (21:15)
[2018-02-05] MEDS ORDERED: cloNIDine HCL 0.1 MG TAB PO ONE (21:15)
[2018-02-05] MEDS ORDERED: cefTRIAXone 1GM/10ml IVPUSH 10 ML IV ONE (21:15)
[2018-02-05 21:21] LABS: Potassium 2.8 mmol/L (3.5-5.1)
[2018-02-05 21:37] LABS: Acetaminophen < 2.0 ug/mL (10-30); Salicylate 6.6 mg/dL (2.8-20.0)
[2018-02-05] MEDS ORDERED: POTASSIUM CHL 20 Meq TABLET PO ONE (21:45)
[2018-02-05] MEDS ORDERED: SODIUM CHLORIDE 0.9% 2,000 ML IV ONE (21:45)
[2018-02-05] MEDS ORDERED: LABETALOL HCL 5 MG/ML ML 20ML VIAL IV ONE (22:00)
[2018-02-05] MEDS ORDERED: POTASSIUM CHL 20MEQ/100ML 100 ML IV ONE (22:00)
[2018-02-05 23:01] LABS: Urine Bacteria NONE SEEN /hpf (None Seen); Urine Blood 1+ /uL (Negative); Urine Hyaline Cast FEW /lpf (0 - 2); Urine Specific Gravity 1.014 (1.001-1.035); Urine WBC 4 /hpf (0 - 5)
[2018-02-05 23:15] LABS: Alcohol, Urine < 3.0 mg/dL (0-5); Amphetamine Screen, Urine NEGATIVE (NEGATIVE); Barbiturate Scree,Urine POSITIVE (NEGATIVE); Benzodiazephine Screen, Urine NEGATIVE (NEGATIVE); Cannabinoid Screen, Urine POSITIVE (NEGATIVE); Cocaine Screen, Urine NEGATIVE (NEGATIVE); Opiate Scree,Urine NEGATIVE (NEGATIVE); Phencyclidine Screen, Urine NEGATIVE (NEGATIVE)
[2018-02-06] MEDS ORDERED: HALOPERIDOL LACTATE 5 MG/ML INJ VIAL IM ONE (00:45)
[2018-02-06] MEDS ORDERED: FUROSEMIDE 20 MG/2 ML VIAL IV ONE (02:15)
[2018-02-06] MEDS ORDERED: ACETAMINOPHEN 325 MG TAB PO PRN (02:15)
[2018-02-06] MEDS ORDERED: ONDANSETRON HCL 4 MG/2 ML VIAL IV PRN (02:15)
[2018-02-06] MEDS ORDERED: MORPHINE SULFATE 4 MG/ML SYR/VIAL IV PRN (02:15)
[2018-02-06] MEDS ORDERED: VANCOMYCIN PER PHARMACY 0 MG IV SCH (02:15)
[2018-02-06] MEDS ORDERED: hydrALAZINE HCL 20 MG/ML VL IV ONE (03:15)
[2018-02-06] MEDS ORDERED: POTASSIUM CHL 20MEQ/100ML 100 ML IV ONE (04:00)
[2018-02-06] MEDS ORDERED: METOPROLOL TARTRATE 1MG/1ML-5ML VIAL IV ONE (04:00)
[2018-02-06] MEDS: PIPERACILLIN-TAZOB 3.375GM 100 ML IV SCH ×4 (07:40→23:36)
[2018-02-06 07:59] LABS: Hematocrit 53.8 % (36.0-46.0); Hemoglobin 17.4 g/dL (12.2-16.2); Mean Corpuscular Hemoglobin 29.2 pg (28.0-32.0); Mean Corpuscular Hgb Conc. 32.3 g/dL (32.0-36.0); Mean Corpuscular Volume 90.3 fL (80.0-100.0); Platelet Count (auto) 367 10^3/uL (140-450); Red Blood Cells 5.96 10^6/uL (4.0-5.20); Red Cell Distribution Width 15.6 % (11.8-14.3); White Blood Cell 29.9 10^3/uL (4.4-10.8)
[2018-02-06 08:03] LABS: Basophils % (manual) 0 (0.0-2.0); Blast Cells 0; Eosinophils % (manual) 0 (0-7); Metamyelocytes % 0; Myelocytes % 0; Promyelocytes % 0; Reactive Lymphocytes 0
[2018-02-06 08:09] LABS: BUN/Creatinine Ratio 13.6; Calcium 9.7 mg/dL (8.5-10.1); Potassium 3.4 mmol/L (3.5-5.1)
[2018-02-06] MEDS ORDERED: LABETALOL HCL 5 MG/ML ML 20ML VIAL IV ONE (08:45)
[2018-02-06 09:02] LABS: Band Neutrophils % (manual) 6; Lymphocytes % (manual) 8 (10.0-50.0); Monocytes % (manual) 2 (0-12)
[2018-02-06] MEDS: cloNIDine HCL 0.1 MG TAB PO SCH ×2 (11:19→22:00)
[2018-02-06] MEDS: METOPROLOL SUCCINATE XL 50 MG TAB PO SCH (11:19)
[2018-02-06] MEDS ORDERED: LABETALOL HCL 5 MG/ML ML 20ML VIAL IV PRN (11:45)
[2018-02-06 21:30] VITALS: BP 107/75
[2018-02-06 22:00] VITALS: BP 107/75
[2018-02-07 05:00] VITALS: BP 145/75
[2018-02-07] MEDS: PIPERACILLIN-TAZOB 3.375GM 100 ML IV SCH ×4 (05:24→23:44)
[2018-02-07] MEDS: cloNIDine HCL 0.1 MG TAB PO SCH ×2 (11:03→21:58)
[2018-02-07] MEDS: METOPROLOL SUCCINATE XL 50 MG TAB PO SCH (11:04)
[2018-02-07] MEDS: metroNIDAZOLE 500 MG TAB PO SCH ×2 (17:34→23:44)
[2018-02-07] MEDS: HYDROcodone-ACET 5/325MG TAB PO PRN (20:32)
[2018-02-07 22:00] VITALS: BP 121/67
[2018-02-07] MEDS: CHOLESTYRAMINE 4 GM POWDER PO SCH (23:44)
[2018-02-08] MEDS: HYDROcodone-ACET 5/325MG TAB PO PRN ×4 (03:23→20:55)
[2018-02-08 05:00] VITALS: BP 132/71
[2018-02-08] MEDS: metroNIDAZOLE 500 MG TAB PO SCH ×3 (05:57→18:00)
[2018-02-08] MEDS: PIPERACILLIN-TAZOB 3.375GM 100 ML IV SCH ×3 (05:57→18:00)
[2018-02-08 06:36] LABS: Basophils # (auto) 0 uL; Basophils % (auto) 0.3 % (0.0-2.0); Eosinophils # (auto) 0.1 uL; Eosinophils % (auto) 0.7 % (0.0-7.0); Hematocrit 33.4 % (36.0-46.0); Lymphocytes # (auto) 2.3 uL; Lymphocytes % (auto) 22.2 % (10.0-50.0); Mean Corpuscular Volume 90.8 fL (80.0-100.0); Monocytes # (auto) 0.6 uL; Monocytes % (auto) 5.7 % (0.0-12.0); Neutrophils # (auto) 7.5 uL; Neutrophils % (auto) 71.1 % (37.0-80.0); Nucleated Red Blood Cells % 0.1 %; Platelet Count (auto) 236 10^3/uL (140-450); Red Blood Cells 3.67 10^6/uL (4.0-5.20); White Blood Cell 10.5 10^3/uL (4.4-10.8)
[2018-02-08 06:53] LABS: Albumin 2.7 g/dL (3.4-5.0); BUN/Creatinine Ratio 17.2; Bilirubin, Total 0.4 mg/dL (0.2-1.0); Calcium 8.9 mg/dL (8.5-10.1); Total Protein 5.8 g/dL (6.4-8.2)
[2018-02-08 06:56] LABS: Potassium 2.9 mmol/L (3.5-5.1)
[2018-02-08 09:00] VITALS: BP 178/62
[2018-02-08] MEDS ORDERED: DIPHENOXYLATE W/ATROPINE 2.5 MG TAB PO ONE (09:30)
[2018-02-08] MEDS ORDERED: DIPHENOXYLATE W/ATROPINE 2.5 MG TAB PO PRN (09:45)
[2018-02-08] MEDS: POTASSIUM CHL 20MEQ/100ML 100 ML IV SCH ×2 (10:35→14:30)
[2018-02-08] MEDS: cloNIDine HCL 0.1 MG TAB PO SCH ×2 (10:36→22:34)
[2018-02-08] MEDS: METOPROLOL SUCCINATE XL 50 MG TAB PO SCH (10:36)
[2018-02-08] MEDS: CHOLESTYRAMINE 4 GM POWDER PO SCH ×2 (11:00→22:34)
[2018-02-08 13:00] VITALS: BP 154/64
[2018-02-08 17:15] VITALS: BP 156/64
[2018-02-08 22:00] VITALS: BP 152/87
[2018-02-09] MEDS: metroNIDAZOLE 500 MG TAB PO SCH ×4 (00:01→17:22)
[2018-02-09] MEDS: PIPERACILLIN-TAZOB 3.375GM 100 ML IV SCH ×4 (00:03→17:27)
[2018-02-09] MEDS: HYDROcodone-ACET 5/325MG TAB PO PRN ×3 (04:45→17:23)
[2018-02-09 05:00] VITALS: BP 134/72
[2018-02-09 06:32] LABS: Basophils # (auto) 0 uL; Basophils % (auto) 0.3 % (0.0-2.0); Eosinophils # (auto) 0.1 uL; Eosinophils % (auto) 1.8 % (0.0-7.0); Hematocrit 33.5 % (36.0-46.0); Lymphocytes # (auto) 1.9 uL; Lymphocytes % (auto) 26.2 % (10.0-50.0); Mean Corpuscular Hemoglobin 29.9 pg (28.0-32.0); Mean Corpuscular Hgb Conc. 32.9 g/dL (32.0-36.0); Monocytes # (auto) 0.4 uL; Monocytes % (auto) 6.1 % (0.0-12.0); Neutrophils # (auto) 4.7 uL; Neutrophils % (auto) 65.6 % (37.0-80.0); Platelet Count (auto) 215 10^3/uL (140-450); Red Blood Cells 3.68 10^6/uL (4.0-5.20); Red Cell Distribution Width 14.9 % (11.8-14.3); White Blood Cell 7.2 10^3/uL (4.4-10.8)
[2018-02-09 07:07] LABS: Albumin 2.5 g/dL (3.4-5.0); Calcium 8.7 mg/dL (8.5-10.1); Potassium 3.5 mmol/L (3.5-5.1)
[2018-02-09 07:09] LABS: BUN/Creatinine Ratio 14.9
[2018-02-09 07:11] LABS: Bilirubin, Total 0.7 mg/dL (0.2-1.0); Total Protein 5.7 g/dL (6.4-8.2)
[2018-02-09 08:00] VITALS: BP 174/71
[2018-02-09 09:00] VITALS: BP 174/71
[2018-02-09] MEDS: CHOLESTYRAMINE 4 GM POWDER PO SCH ×2 (10:45→10:57)
[2018-02-09] MEDS: METOPROLOL SUCCINATE XL 50 MG TAB PO SCH (10:56)
[2018-02-09] MEDS: cloNIDine HCL 0.1 MG TAB PO SCH ×2 (11:02→21:09)
[2018-02-09 13:00] VITALS: BP 193/79
[2018-02-09 16:49] VITALS: BP 162/68
[2018-02-09 17:00] VITALS: BP 195/83
== END 2018-02-09 22:00 | DRG 871 ==
LOC: ER 19:44 → EDBD 19:44 → TELE 19:45 → TELE-CENTR 02-06 21:20
PROVIDERS: ADMIT Nurse Practitioner Family; ATTEND Internal Medicine
DX: A41.9 Sepsis, unspecified organism (principal); G93.41 Metabolic encephalopathy; G20 Parkinson's disease; I50.9 Heart failure, unspecified; I11.0 Hypertensive heart disease with heart failure; J44.9 Chronic obstructive pulmonary disease, unspecified; E87.6 Hypokalemia; I16.0 Hypertensive urgency; D72.829 Elevated white blood cell count, unspecified; F17.210 Nicotine dependence, cigarettes, uncomplicated; F32.9 Major depressive disorder, single episode, unspecified; F41.9 Anxiety disorder, unspecified; G89.4 Chronic pain syndrome; M19.90 Unspecified osteoarthritis, unspecified site; F12.10 Cannabis abuse, uncomplicated; I25.10 Atherosclerotic heart disease of native coronary artery without angina pectoris; K27.9 Peptic ulcer, site unspecified, unspecified as acute or chronic, without hemorrhage or perforation; Z79.82 Long term (current) use of aspirin; Z82.0 Family history of epilepsy and other diseases of the nervous system; Z82.49 Family history of ischemic heart disease and other diseases of the circulatory system; Z80.1 Family history of malignant neoplasm of trachea, bronchus and lung; Z90.710 Acquired absence of both cervix and uterus; Z79.899 Other long term (current) drug therapy; I25.2 Old myocardial infarction; Z90.89 Acquired absence of other organs
CPT/HCPCS: 36415; 36600; 51702; 70450; 71045; 80048; 80053; 80307; 80320; 80329; 81001; 82140; 82805; 82962; 83605; 83735; 83880; 84484; 85007; 85025; 85027; 85379; 85610; 85730; 87040; 87077; 87186; 87493; 93005; 93306; 96361; 96365; 96366; 96372; 96375; 99291; J2543; J3480

== ENCOUNTER 2018-07-14 14:02 | Emergency (ER) | payer OTHER, MEDICAID ==
[~2018-07-14] VITALS: Ht 160 cm; Wt 49.9 kg
[~2018-07-14 14:02] MED LIST changes: +LOSA-46 PO; -LOSA50TA6 PO
[2018-07-14 14:51] VITALS: BP 223/108
[2018-07-14] MEDS ORDERED: DEXAMETHASONE SOD PHOS 10MG/1ML VIAL INJ IM ONE (15:45)
[2018-07-14] MEDS ORDERED: KETOROLAC TROMETH 60MG/2ML VIAL IM ONE (15:45)
[2018-07-14] MEDS ORDERED: ONDANSETRON ODT 4 MG TAB PO ONE (15:45)
== END 2018-07-14 17:22 | disposition home or self-care (01) ==
LOC: EDBD 14:02 → ER 14:02
DX: M54.16 Radiculopathy, lumbar region (principal); G89.4 Chronic pain syndrome; I11.0 Hypertensive heart disease with heart failure; I50.9 Heart failure, unspecified; I25.2 Old myocardial infarction; Z86.73 Personal history of transient ischemic attack (TIA), and cerebral infarction without residual deficits; Z90.710 Acquired absence of both cervix and uterus; Z90.89 Acquired absence of other organs
CPT/HCPCS: 72100; 96372; 99284; J1100; J1885; Q0162

== ENCOUNTER 2018-11-14 22:35 | Inpatient (IN) | payer MEDICAID, OTHER ==
[~2018-11-14] VITALS: Ht 167.6 cm; Wt 49.6 kg
[2018-11-14] MEDS: PROPOFOL 100 ML IV SCH (23:21)
[2018-11-14 23:25] VITALS: BP 231/136
[2018-11-14] MEDS ORDERED: ETOMIDATE (2MG/ML) 20ML VIAL IV ONE (23:30)
[2018-11-14] MEDS ORDERED: SUCCINYLCHOLINE CHLORIDE 20 MG/ML 10ML VIAL IV ONE (23:30)
[2018-11-14] MEDS ORDERED: fentaNYL Drip 2500mCg/250mlNS 250 ML IV ONE (23:47)
[2018-11-14 23:52] LABS: Basophils # (auto) 0.1 uL; Basophils % (auto) 0.4 % (0.0-2.0); Eosinophils # (auto) 0.4 uL; Eosinophils % (auto) 2.4 % (0.0-7.0); Hematocrit 51.1 % (36.0-46.0); Hemoglobin 16.3 g/dL (12.2-16.2); Lymphocytes # (auto) 3.9 uL; Lymphocytes % (auto) 23.9 % (10.0-50.0); Mean Corpuscular Hemoglobin 29.7 pg (28.0-32.0); Mean Corpuscular Volume 92.9 fL (80.0-100.0); Monocytes # (auto) 0.4 uL; Monocytes % (auto) 2.5 % (0.0-12.0); Neutrophils # (auto) 11.5 uL; Neutrophils % (auto) 70.8 % (37.0-80.0); Nucleated Red Blood Cells % 0.1 %; Platelet Count (auto) 448 10^3/uL (140-450); Red Blood Cells 5.49 10^6/uL (4.0-5.20); Red Cell Distribution Width 15.2 % (11.8-14.3); White Blood Cell 16.2 10^3/uL (4.4-10.8)
[2018-11-14] MEDS: fentaNYL Drip 2500mCg/250mlNS 250 ML IV SCH (23:59)
[2018-11-15] VITALS (11 sets, daily range): BP systolic 78–231; BP diastolic 45–136
[2018-11-15] MEDS ORDERED: cefTRIAXone 1GM/50ML D5W 50 ML IV ONE ×2 (00:09→00:15)
[2018-11-15 00:10] LABS: Albumin 2.9 g/dL (3.4-5.0); BUN/Creatinine Ratio 16.4; Potassium 5.4 mmol/L (3.5-5.1)
[2018-11-15 00:11] LABS: INR 0.95 (0.9-1.15); Prothrombin Time 10.2 sec (9.27-12.13)
[2018-11-15 00:13] LABS: Lactic Acid w/Reflex 7.3 mmol/L (0.4-2.0)
[2018-11-15 00:15] LABS: Bilirubin, Total 0.2 mg/dL (0.2-1.0); Total Protein 7.8 g/dL (6.4-8.2)
[2018-11-15] MEDS ORDERED: SODIUM CHLORIDE 0.9% 1,000 ML IV ONE (00:15)
[2018-11-15 00:16] LABS: Urine Bacteria NONE SEEN /hpf (None Seen); Urine Blood Negative /uL (Negative); Urine Specific Gravity 1.004 (1.001-1.035); Urine WBC <1 /hpf (0 - 5)
[2018-11-15] MEDS ORDERED: NOREPINEPHRINE 8 MG/250ML KIT 250 ML IV ONE (00:37)
[2018-11-15] MEDS: NOREPINEPHRINE 8 MG/250ML KIT 250 ML IV SCH (00:55)
[2018-11-15] MEDS ORDERED: SODIUM CHLORIDE 0.9% 500 ML IV ONE (01:00)
[2018-11-15] MEDS ORDERED: VANCOMYCIN 1GM/250ML 250 ML IV ONE ×2 (01:00→01:02)
[2018-11-15] MEDS ORDERED: MIDAZOLAM DRIP 50 mg/50mL 50 ML IV ONE ×2 (01:06→23:04)
[2018-11-15] MEDS: MIDAZOLAM DRIP 50 mg/50mL 50 ML IV SCH ×4 (01:14→23:06)
[2018-11-15] MEDS ORDERED: ONDANSETRON HCL 4 MG/2 ML VIAL IV PRN (02:45)
[2018-11-15] MEDS ORDERED: MORPHINE SULFATE 4 MG/ML SYR/VIAL IV PRN (02:45)
[2018-11-15] MEDS ORDERED: ACETAMINOPHEN 325 MG TAB PO PRN (02:45)
[2018-11-15] MEDS ORDERED: NITROGLYCERIN 0.4 MG SL TAB SL PRN (02:45)
[2018-11-15] MEDS ORDERED: ALBUTEROL SULF 2.5 MG/0.5ML(0.5%) NEB SOLN NEB PRN (02:45)
[2018-11-15] MEDS ORDERED: VANCOMYCIN PER PHARMACY 0 MG IV SCH (02:45)
[2018-11-15] MEDS: SODIUM CHLORIDE 0.9% 1,000 ML IV SCH ×2 (03:01→15:13)
[2018-11-15] MEDS ORDERED: ENOXAPARIN SOD 100 MG/1 ML SYRINGE SC ONE (03:30)
[2018-11-15] MEDS ORDERED: SUCCINYLCHOLINE CHLORIDE 20 MG/ML 10ML VIAL IV ONE (06:49)
[2018-11-15] MEDS ORDERED: ETOMIDATE (2MG/ML) 20ML VIAL IV ONE (06:49)
[2018-11-15] MEDS: PIPERACILLIN-TAZOB 2.25GM 50 ML IV SCH ×3 (07:04→18:16)
[2018-11-15] MEDS: ASPirin 81 mg TAB PO SCH (10:32)
[2018-11-15] MEDS: fentaNYL Drip 2500mCg/250mlNS 250 ML IV SCH (18:09)
[2018-11-15 19:49] LABS: Basophils # (auto) 0.1 uL; Basophils % (auto) 0.5 % (0.0-2.0); Eosinophils # (auto) 0.3 uL; Eosinophils % (auto) 2.5 % (0.0-7.0); Hematocrit 34.3 % (36.0-46.0); Hemoglobin 11.2 g/dL (12.2-16.2); Lymphocytes # (auto) 1.3 uL; Lymphocytes % (auto) 11.5 % (10.0-50.0); Mean Corpuscular Hemoglobin 29.4 pg (28.0-32.0); Mean Corpuscular Hgb Conc. 32.5 g/dL (32.0-36.0); Mean Corpuscular Volume 90.4 fL (80.0-100.0); Monocytes # (auto) 0.5 uL; Monocytes % (auto) 4.5 % (0.0-12.0); Neutrophils # (auto) 8.9 uL; Platelet Count (auto) 265 10^3/uL (140-450); Red Blood Cells 3.79 10^6/uL (4.0-5.20); Red Cell Distribution Width 14.8 % (11.8-14.3)
[2018-11-15 19:59] LABS: Albumin 2.1 g/dL (3.4-5.0); Calcium 7.1 mg/dL (8.5-10.1); Potassium 3.6 mmol/L (3.5-5.1)
[2018-11-15 20:02] LABS: BUN/Creatinine Ratio 27.1; Bilirubin, Total 0.2 mg/dL (0.2-1.0); Total Protein 4.9 g/dL (6.4-8.2)
[2018-11-15 20:05] LABS: Albumin 2.1 g/dL (3.4-5.0); BUN/Creatinine Ratio 22.5; Calcium 7.1 mg/dL (8.5-10.1); Potassium 3.5 mmol/L (3.5-5.1)
[2018-11-15 20:11] LABS: Bilirubin, Total 0.4 mg/dL (0.2-1.0); Total Protein 5.2 g/dL (6.4-8.2)
[2018-11-15] MEDS: ATORVASTATIN 20 MG TAB PO SCH (21:32)
[2018-11-15] MEDS: PROPOFOL 100 ML IV SCH (23:24)
[2018-11-16] VITALS (12 sets, daily range): BP systolic 103–136; BP diastolic 46–67
[2018-11-16] MEDS: NOREPINEPHRINE 8 MG/250ML KIT 250 ML IV SCH (00:39)
[2018-11-16] MEDS: PIPERACILLIN-TAZOB 2.25GM 50 ML IV SCH ×5 (00:48→23:48)
[2018-11-16] MEDS: SODIUM CHLORIDE 0.9% 1,000 ML IV SCH ×2 (04:15→16:29)
[2018-11-16] MEDS ORDERED: VANCOMYCIN 750 MG in D5W 5% 250 ML IV SCH (05:00)
[2018-11-16 07:30] LABS: Basophils # (auto) 0 uL; Basophils % (auto) 0.5 % (0.0-2.0); Eosinophils # (auto) 0.3 uL; Eosinophils % (auto) 3.7 % (0.0-7.0); Hematocrit 29.1 % (36.0-46.0); Hemoglobin 9.6 g/dL (12.2-16.2); Lymphocytes # (auto) 1.6 uL; Lymphocytes % (auto) 18.4 % (10.0-50.0); Mean Corpuscular Hemoglobin 29.9 pg (28.0-32.0); Mean Corpuscular Hgb Conc. 32.9 g/dL (32.0-36.0); Mean Corpuscular Volume 90.9 fL (80.0-100.0); Monocytes # (auto) 0.4 uL; Monocytes % (auto) 4.1 % (0.0-12.0); Neutrophils # (auto) 6.5 uL; Neutrophils % (auto) 73.3 % (37.0-80.0); Platelet Count (auto) 216 10^3/uL (140-450); Red Cell Distribution Width 14.8 % (11.8-14.3); White Blood Cell 8.8 10^3/uL (4.4-10.8)
[2018-11-16] MEDS: MIDAZOLAM DRIP 50 mg/50mL 50 ML IV SCH ×4 (07:44→21:36)
[2018-11-16 07:45] LABS: INR 1.02 (0.9-1.15); Partial Thromboplastin Time 25.4 sec (23.78-33.04); Prothrombin Time 10.9 sec (9.27-12.13)
[2018-11-16 07:49] LABS: Potassium 3.1 mmol/L (3.5-5.1)
[2018-11-16 07:53] LABS: Albumin 1.8 g/dL (3.4-5.0); BUN/Creatinine Ratio 19.5; Calcium 6.9 mg/dL (8.5-10.1)
[2018-11-16 08:07] LABS: Bilirubin, Total 0.3 mg/dL (0.2-1.0); Total Protein 4.5 g/dL (6.4-8.2)
[2018-11-16] MEDS ORDERED: FUROSEMIDE 20 MG/2 ML VIAL IV ONE (09:15)
[2018-11-16] MEDS: ASPirin 81 mg TAB PO SCH (09:49)
[2018-11-16] MEDS ORDERED: POTASSIUM EFFERVESENT TAB 25 MEQ PO ONE (10:00)
[2018-11-16] MEDS: PROPOFOL 100 ML IV SCH ×2 (11:21→23:48)
--- NOTE | 2018-11-16 11:28 | NUR ---
NUTRITION CONSULT/ASSESSMENT NOTES Please refer to link notes of nutrition screen form filed under the intervention section of the plan of care for further details. Est. Needs based on IBW (59 kg): 1450 kcal to 1750 kcal (25-30 kcal/kgIBW), 59 gms to 71 gms pro (1.0-1.2 gms/kgBW). Will continue to monitor pertinent labs and reassess nutrient needs prn Thank you for this consult. Addendum: 11/16/18 at [address] Amended: Links added.
[2018-11-16] MEDS: ALBUTEROL SULF 2.5 MG/0.5ML(0.5%) NEB SOLN NEB SCH ×3 (14:00→22:07)
[2018-11-16] MEDS: Jevity 1.2 Cal/Fiber 1 Liter GT SCH (14:50)
--- NOTE | 2018-11-16 17:30 | NUR ---
WOUND CARE NOTE: Wound care in to see patient due to intubation status and low Bandar score of 12 putting patient to high risk for skin breakdown. Patient is 73 years old female with admitting diagnosis of Septic Shock. Patient is resting in hospital bed in ER bed#5. She's ICU Status, intubated,sedated and mechanically ventilated . Patient appears to be in no pain using Baker Domínguez Faces Pain Scale. Patient is wound free, no pressure injury related issue, will continue to monitor. RECOMMENDATION: BID/PRN cleaning and application of Barrier cream to sacral/buttocks as preventative per MD order, frequent turning and repositioning schedule as condition permits, redistribute pressure points with pillows,elevate heels on pillows, continue monitoring by wound care while patient is mechanically ventilated.
[2018-11-16] MEDS: ATORVASTATIN 20 MG TAB PO SCH (22:16)
[2018-11-16] MEDS: ACETAMINOPHEN 650 mg PER 20 mL UD GT PRN (22:26)
[2018-11-17] VITALS (13 sets, daily range): BP systolic 114–179; BP diastolic 46–96
[2018-11-17] MEDS: MIDAZOLAM DRIP 50 mg/50mL 50 ML IV SCH ×4 (01:51→18:08)
[2018-11-17] MEDS: ALBUTEROL SULF 2.5 MG/0.5ML(0.5%) NEB SOLN NEB SCH ×5 (02:14→22:05)
[2018-11-17] MEDS: fentaNYL Drip 2500mCg/250mlNS 250 ML IV SCH ×3 (04:43→18:07)
[2018-11-17] MEDS: NOREPINEPHRINE 8 MG/250ML KIT 250 ML IV SCH (04:43)
[2018-11-17] MEDS: PIPERACILLIN-TAZOB 2.25GM 50 ML IV SCH ×3 (06:16→17:59)
[2018-11-17 06:36] LABS: Basophils # (auto) 0 uL; Basophils % (auto) 0.3 % (0.0-2.0); Eosinophils # (auto) 0.3 uL; Eosinophils % (auto) 3.9 % (0.0-7.0); Hemoglobin 9.7 g/dL (12.2-16.2); Lymphocytes # (auto) 1.3 uL; Lymphocytes % (auto) 15.4 % (10.0-50.0); Mean Corpuscular Hemoglobin 30.1 pg (28.0-32.0); Mean Corpuscular Hgb Conc. 33.4 g/dL (32.0-36.0); Monocytes # (auto) 0.5 uL; Monocytes % (auto) 5.5 % (0.0-12.0); Neutrophils # (auto) 6.4 uL; Neutrophils % (auto) 74.9 % (37.0-80.0); Platelet Count (auto) 229 10^3/uL (140-450); Red Blood Cells 3.23 10^6/uL (4.0-5.20); Red Cell Distribution Width 14.5 % (11.8-14.3); White Blood Cell 8.5 10^3/uL (4.4-10.8)
[2018-11-17 07:23] LABS: Albumin 1.9 g/dL (3.4-5.0); Calcium 7.7 mg/dL (8.5-10.1); Potassium 3.6 mmol/L (3.5-5.1)
[2018-11-17 07:28] LABS: Bilirubin, Total 0.4 mg/dL (0.2-1.0); Total Protein 4.9 g/dL (6.4-8.2)
[2018-11-17] MEDS: ASPirin 81 mg TAB PO SCH (10:48)
[2018-11-17] MEDS: METOCLOPRAMIDE HCL 5MG/ml INJ 2ml VIAL IV SCH (14:57)
[2018-11-17] MEDS: cloNIDine HCL 0.1 MG TAB GT SCH ×2 (14:58→22:41)
[2018-11-17] MEDS: METOPROLOL TARTRATE 1MG/1ML-5ML VIAL IV PRN (14:59)
[2018-11-17] MEDS ORDERED: METOPROLOL TARTRATE 1MG/1ML-5ML VIAL IV SCH (18:00)
[2018-11-17] MEDS: PROPOFOL 100 ML IV SCH (18:01)
[2018-11-17] MEDS ORDERED: cloNIDine HCL 0.1 MG TAB GT SCH (22:00)
[2018-11-17] MEDS: ATORVASTATIN 20 MG TAB PO SCH (22:00)
[2018-11-17] MEDS: methylPREDNISolone SOD SUCC 125 MG/2 ML VL IV SCH (22:40)
[2018-11-18] VITALS (36 sets, daily range): BP systolic 122–192; BP diastolic 38–82
[2018-11-18] MEDS: PIPERACILLIN-TAZOB 2.25GM 50 ML IV SCH ×5 (00:15→23:51)
[2018-11-18] MEDS: METOCLOPRAMIDE HCL 5MG/ml INJ 2ml VIAL IV SCH ×5 (00:15→23:51)
[2018-11-18] MEDS: NOREPINEPHRINE 8 MG/250ML KIT 250 ML IV SCH (00:39)
[2018-11-18] MEDS: ALBUTEROL SULF 2.5 MG/0.5ML(0.5%) NEB SOLN NEB SCH ×6 (02:05→22:23)
[2018-11-18] MEDS: PROPOFOL 100 ML IV SCH (06:23)
[2018-11-18] MEDS: methylPREDNISolone SOD SUCC 125 MG/2 ML VL IV SCH ×3 (06:23→21:34)
[2018-11-18 07:25] LABS: Basophils # (auto) 0 uL; Basophils % (auto) 0.1 % (0.0-2.0); Eosinophils # (auto) 0 uL; Hematocrit 32.7 % (36.0-46.0); Hemoglobin 10.8 g/dL (12.2-16.2); Lymphocytes # (auto) 0.5 uL; Lymphocytes % (auto) 7.2 % (10.0-50.0); Mean Corpuscular Hemoglobin 29.6 pg (28.0-32.0); Mean Corpuscular Hgb Conc. 32.9 g/dL (32.0-36.0); Mean Corpuscular Volume 90.1 fL (80.0-100.0); Monocytes # (auto) 0.1 uL; Neutrophils # (auto) 6.9 uL; Neutrophils % (auto) 91.7 % (37.0-80.0); Nucleated Red Blood Cells % 0.1 %; Platelet Count (auto) 244 10^3/uL (140-450); Red Blood Cells 3.63 10^6/uL (4.0-5.20); Red Cell Distribution Width 14.4 % (11.8-14.3); White Blood Cell 7.6 10^3/uL (4.4-10.8)
[2018-11-18 07:48] LABS: Albumin 2.1 g/dL (3.4-5.0); BUN/Creatinine Ratio 10.5; Potassium 3.9 mmol/L (3.5-5.1)
[2018-11-18 07:51] LABS: Bilirubin, Total 0.4 mg/dL (0.2-1.0)
[2018-11-18] MEDS: cloNIDine HCL 0.1 MG TAB GT SCH ×2 (09:39→21:34)
[2018-11-18] MEDS: ASPirin 81 mg TAB PO SCH (10:04)
--- NOTE | 2018-11-18 10:19 | NUR ---
Nutrition Follow-up Notes Wt.: 54.431 kg estimated by staff as of 11/14/18 Pt remains intubated, sedated with Propofol @ 16.329 ml/hr providing 431 kcal from Fat. Pt's currently NPO, EN support temporarily held d/t high residuals noted by RN since yesterday. Pt's previously on Jevity 1.2 Ca @ 30 ml/hr providing 864 kcal, 40 gms pro and 581 ml free water. Notedpt's for active Cardiology consult. Est. Needs based on IBW (59 kg): 1450 kcal to 1750 kcal (25-30 kcal/kgIBW), 59 gms to 71 gms pro (1.0-1.2 gms/kgBW). Will continue to monitor pertinent labs and reassess nutrient needs prn Labs: Gluc 150 H, Cl 109 H, CO2 20 L, Ca 8.0 L, Tpro 6.0 L, Alb 2.1 L Skin: Bandar scale 12, high risk, skin intact per painter helper. GI: Pt had 2x BM this morning per painter helper. PES: Increased nutrient needs r/t current/chronic medical condition aeb intubated, sedated, NPO. Altered nutrition related lab values r/t current/chronic medical condition aeb hypocapnia, hypokalemia, hyperchloremia, elev. renal labs hypocalcemia and severe hypoalbuminemia Will continue to monitor NPO status, EN tolerance, skin status, pertinent labs and weight trend. F/u in 2 to 3 days. Rec.: 1.) If still NPO, consider to resume EN support at lower rate and gradually increase feeding of Jevity 1.2 Harish to 45 ml/hr goal rate as tolerated while on current rate of Propofol, when medically appropriate. 2.) If Albumin level continues trending down, consider Prostat 1 pkt BID. 3.) Advance gradually to oral diet when medically appropriate. 4.) Refer to RD for further nutrition educ. and weight monitoring upon discharge. 5.) Continue current plan of care.
--- NOTE | 2018-11-18 10:46 | NUR ---
WOUND CARE NOTE: Reassess patient for skin integrity monitoring due to intubation status and low Bandar score of 12 putting patient to high risk for skin breakdown. Patient continue resting in hospital bed in ER bed#5. She's ICU Status, remain intubated and mechanically ventilated . Patient appears to be in no pain using Baker Domínguez Faces Pain Scale. Patient remain wound free, no pressure injury related issue noted. Applied Opti foam sacral dressing to upper sacrum as preventative. Repositioned for comfort on her back, redistributed pressure points with pillows. Patient tolerated well. KENRICK Caba at bedside. RECOMMENDATION: BID/PRN cleaning and application of Barrier cream to sacral/buttocks as preventative per MD order, frequent turning and repositioning schedule as condition permits, redistribute pressure points with pillows,elevate heels on pillows, continue monitoring by wound care while patient is mechanically ventilated. Addendum: 11/18/18 at 1721 by Steph Anderson RN Amended: Links added.
[2018-11-18] MEDS ORDERED: FUROSEMIDE 20 MG/2 ML VIAL IV ONE (15:15)
[2018-11-18] MEDS ORDERED: MORPHINE SULFATE 4 MG/ML SYR/VIAL IV PRN (16:00)
[2018-11-18] MEDS: hydrALAZINE HCL 20 MG/ML VL IV PRN (17:25)
--- NOTE | 2018-11-18 17:45 | NUR ---
Admit to ICU from ER on vent [place] [place] admitted to ICU via gurney on teletypesetter monitor, intubated and being bagged by Respiratory Therapist. Patient transferred to bed, connected to mechanical ventilator by therapist, BVM at bedside. Patient connected to ICU monitoring, weighed by bedscale, oriented to Mercy Willingham RN primary RN, unit, ventilator and sedation.
--- NOTE | 2018-11-18 18:15 | NUR ---
Family at bedside.
--- NOTE | 2018-11-18 19:36 | NUR ---
Opening Shift Note Assumed care of patient, mechanically vented on AC mode 16,tv400, fio2 40%, PEEP of 5. ETT size 7.5 and 25cm at lip secured. NGT to left nare with jevity feedings going at 20cc/hr. NGT auscultated for positive placement and patient with 25cc of residual, tolerating well, feedings continued on aspiration precautions with high mike's. Fentanyl drip @ 100mcg and propofol @40 mcg to right subclavian TLC. Patient pupils are 2 and sluggish, does not respond to voice and deep suctioned patient with no gag reflex, will titrate off sedation to be able to assess neuro status . Acosta to gravity draining clear yellow urine. Patient turned to assess for skin integrity and slight blanchable redness to coccyx noted, z-guard barrier cream applied, optifoam to sacrum for preventative. See interventions for complete head to toe asessment. No family at bedside. No S/S of distress/SOB or pain.Continue to monitor.
[2018-11-18] MEDS: fentaNYL Drip 2500mCg/250mlNS 250 ML IV SCH (20:36)
[2018-11-18] MEDS: ATORVASTATIN 20 MG TAB PO SCH (21:33)
[2018-11-19] VITALS (107 sets, daily range): BP systolic 102–197; BP diastolic 32–100
[2018-11-19] MEDS: MIDAZOLAM DRIP 50 mg/50mL 50 ML IV SCH (01:01)
--- NOTE | 2018-11-19 01:13 | NUR ---
SEDATION TITRATED PROPOFOL TO 30 MCG @ MIDNIGHT TO ASSESS NEURO STATUS @ AROUND 0100 PROPOFOL PLACED BACK TO 35MCG AND FENTANYL UP TO 125MCG DT PATIENT BITING ON ETT AND MORE AWAKE SEE IV SPREADSHEET CONTINUE TO MONITOR
[2018-11-19] MEDS: ALBUTEROL SULF 2.5 MG/0.5ML(0.5%) NEB SOLN NEB SCH ×6 (02:41→22:06)
[2018-11-19 03:59] LABS: Basophils # (auto) 0 uL; Eosinophils # (auto) 0 uL; Hematocrit 30.7 % (36.0-46.0); Hemoglobin 10.3 g/dL (12.2-16.2); Lymphocytes # (auto) 0.5 uL; Lymphocytes % (auto) 4.5 % (10.0-50.0); Mean Corpuscular Hemoglobin 30.2 pg (28.0-32.0); Mean Corpuscular Hgb Conc. 33.7 g/dL (32.0-36.0); Mean Corpuscular Volume 89.5 fL (80.0-100.0); Monocytes # (auto) 0.3 uL; Monocytes % (auto) 2.6 % (0.0-12.0); Neutrophils # (auto) 9.7 uL; Neutrophils % (auto) 92.9 % (37.0-80.0); Platelet Count (auto) 284 10^3/uL (140-450); Red Blood Cells 3.43 10^6/uL (4.0-5.20); Red Cell Distribution Width 14.5 % (11.8-14.3); White Blood Cell 10.5 10^3/uL (4.4-10.8)
[2018-11-19 04:14] LABS: Potassium 3.3 mmol/L (3.5-5.1)
[2018-11-19 04:27] LABS: Albumin 2.1 g/dL (3.4-5.0); Bilirubin, Total 0.2 mg/dL (0.2-1.0); Calcium 8.5 mg/dL (8.5-10.1); Total Protein 5.7 g/dL (6.4-8.2)
--- NOTE | 2018-11-19 04:48 | NUR ---
BM/AM CARE/LINEN CHANGE PATIENT NOTED TO HAVE MODERATE AMOUNT OF LIQUID/SOFT GREENISH BROWN STOOL INCONTINENCE. PERINEAL AREA CLEANSED WITH WARM SOAPY WATER, Z-GUARD BARRIER CREAM APPLIED TO SACRUM. COMPLETE BED BATH GIVEN AND SKIN INTEGRITY REASSESSED AT THIS TIME: NO CHANGES NOTED. NEW GOWN PLACED ON PATIENT ,PARTIAL BED LINEN CHANGE DONE. ORAL CARE PROVIDED , PATIENT TOLERATED WELL. RESIDUAL NOTED TO BE 35CC FROM FEEDINGS, FEEDINGS RESTARTED.PATIENT REPOSITIONED FOR COMFORT, HEELS OFFLOADED WITH PILLOWS, ASPIRATION PRECAUTIONS IN PLACE.CONTINUE CARE.
[2018-11-19] MEDS: PIPERACILLIN-TAZOB 2.25GM 50 ML IV SCH ×3 (05:37→19:49)
[2018-11-19] MEDS: methylPREDNISolone SOD SUCC 125 MG/2 ML VL IV SCH ×3 (05:38→14:45)
[2018-11-19] MEDS: METOCLOPRAMIDE HCL 5MG/ml INJ 2ml VIAL IV SCH ×3 (05:38→19:49)
[2018-11-19] MEDS: NOREPINEPHRINE 8 MG/250ML KIT 250 ML IV SCH (07:16)
--- NOTE | 2018-11-19 07:17 | NUR ---
CARE ENDORSED TO DAY SHIFT RN PATIENT WITH NO S/S OF DISTRESS , POX 93%, RR 16, BP 109/35
--- NOTE | 2018-11-19 08:00 | NUR ---
TF turned off in preparation for CPAP trial.
--- NOTE | 2018-11-19 08:45 | NUR ---
Patient re[positioned to right side - became asynchronous with ventilator, resp 34-37, HR 130's - RT notified et Diprivan increased to 40 mcg/hr. - will continue to monitor.
[2018-11-19] MEDS: PROPOFOL 100 ML IV SCH (09:00)
--- NOTE | 2018-11-19 09:00 | NUR ---
TF re-started due to unable to do CPAP trial secondary to patient asynchronous with ventilator.
--- NOTE | 2018-11-19 09:17 | NUR ---
visits and examines patient -m orders received.
[2018-11-19] MEDS ORDERED: POTASSIUM CHL 20MEQ/100ML 100 ML IV ONE (09:30)
[2018-11-19] MEDS: PANTOPRAZOLE 40 MG/10 ML VIAL IV SCH (11:00)
[2018-11-19] MEDS: cloNIDine HCL 0.1 MG TAB GT SCH ×2 (12:00→23:05)
--- NOTE | 2018-11-19 12:25 | NUR ---
DR BRADSHAW VISITS AND EXAMINES PATIENT - ORDERS RECEIVED.
--- NOTE | 2018-11-19 13:30 | NUR ---
Respiratory note: PT BECAME TACHY, BP INCREASED, AND SPO2 DECREASED TO 87%. INCREASED WOB WAS NOTED. PT WAS PLACED BACK ON PREVIOUS SETTINGS OF A/C 16, 400, +5, 40%. RN AT BEDSIDE AND AWARE OF CHANGES. PAGED WITH ABG RESULTS AND VENT CHANGES.
[2018-11-19] MEDS: ASPirin 81 mg TAB PO SCH (13:32)
--- NOTE | 2018-11-19 19:30 | NUR ---
REPORT FROM DEBI CHOUDHARY.
[2018-11-19] MEDS ORDERED: POTASSIUM CHL 20MEQ/100ML 100 ML IV PRN (19:45)
--- NOTE | 2018-11-19 20:00 | NUR ---
ASSESSMENT: LIGHTLY SEDATED ON 15 MG VERSED AND 125 FENTANYL MCG/HR. WAKES EASILY BUT DOES NOT FOLLOW COMMANDS, VERY RESTLESS AND KICKS LEGS. RR 30'S, HR 120-130'S. SBP 160'S. RICHARD 3+, BITES ON TUBE WHEN WAKING UP. ABDOMEN - SOFT WITH HYPOACTIVE BOWEL SOUNDS, STOOL PRESENT, MODERATE, SOFT GREEN -BROWN. JEVITY INFUSING AT 20CC/HR, 15 CC RESIDUAL. SACRAL-COCCYGEAL AREA NO OPEN WOUNDS. VÍCTOR CARE PROVIDED, AND OINTMENT APPLIED. RIGHT SUBCLAVIAN TRIPLE LUMEN IN PLACE AND INTACT. ALL DRIP INFUSING THRU IT. ORAL CARE, REPOSITIONED.
[2018-11-19] MEDS: ATORVASTATIN 20 MG TAB PO SCH (23:04)
--- NOTE | 2018-11-19 23:10 | NUR ---
FIO2 UP TO 40%, SATS 87%, RR 31. ETT SUCTION WITH LARGE AMT. OF THICK BROWN PLUGS AND PINK TINGED SPUTUM AFTERWARDS. PT. BECOMES VERY RESTLESS EASILY ALTHOUGH SEDATION 15 MG VERSED AND 125 MCG/HR OF FENTANYL. FENTANYL INCREASED TO 150 MCG/HR WITH NO CHANGES IN HR. OR SATS AT THIS TIME. HR 137, HEMA WITH R.T NOTIFIED.
--- NOTE | 2018-11-19 23:31 | NUR ---
HR 71, SATS 93%. SBP 158/58
[2018-11-19] MEDS: fentaNYL Drip 2500mCg/250mlNS 250 ML IV SCH (23:44)
[2018-11-20] VITALS (100 sets, daily range): BP systolic 92–223; BP diastolic 38–129
[2018-11-20] MEDS: PIPERACILLIN-TAZOB 2.25GM 50 ML IV SCH ×4 (00:03→21:26)
[2018-11-20] MEDS: METOCLOPRAMIDE HCL 5MG/ml INJ 2ml VIAL IV SCH ×4 (00:03→21:24)
[2018-11-20] MEDS: NOREPINEPHRINE 8 MG/250ML KIT 250 ML IV SCH (00:39)
[2018-11-20] MEDS: MIDAZOLAM DRIP 50 mg/50mL 50 ML IV SCH ×2 (01:01→23:25)
[2018-11-20] MEDS: ALBUTEROL SULF 2.5 MG/0.5ML(0.5%) NEB SOLN NEB SCH ×6 (02:10→22:16)
[2018-11-20 03:57] LABS: Basophils # (auto) 0 uL; Basophils % (auto) 0.1 % (0.0-2.0); Eosinophils # (auto) 0 uL; Hematocrit 30.1 % (36.0-46.0); Hemoglobin 9.6 g/dL (12.2-16.2); Lymphocytes # (auto) 0.9 uL; Lymphocytes % (auto) 5.6 % (10.0-50.0); Mean Corpuscular Hemoglobin 29.4 pg (28.0-32.0); Mean Corpuscular Volume 91.8 fL (80.0-100.0); Monocytes # (auto) 0.6 uL; Monocytes % (auto) 3.7 % (0.0-12.0); Neutrophils # (auto) 14.7 uL; Neutrophils % (auto) 90.6 % (37.0-80.0); Platelet Count (auto) 295 10^3/uL (140-450); Red Blood Cells 3.27 10^6/uL (4.0-5.20); Red Cell Distribution Width 14.8 % (11.8-14.3); White Blood Cell 16.2 10^3/uL (4.4-10.8)
[2018-11-20 04:12] LABS: Albumin 1.9 g/dL (3.4-5.0); BUN/Creatinine Ratio 28.4; Calcium 8.1 mg/dL (8.5-10.1); Potassium 3.7 mmol/L (3.5-5.1)
[2018-11-20 04:15] LABS: Bilirubin, Total 0.3 mg/dL (0.2-1.0); Total Protein 5.3 g/dL (6.4-8.2)
--- NOTE | 2018-11-20 06:00 | NUR ---
SEDATION DOWN DUE TO HEART RATE 40'S, PROPOFOL 30 MCG, PT. AROUSES AND BECOMES VERY RESTLESS WITH HR 130'S, RR 30'S. FREQUENT PVC'S AND PAC'S NOTED WHEN HEART RATE UP
[2018-11-20] MEDS: methylPREDNISolone SOD SUCC 125 MG/2 ML VL IV SCH ×3 (06:10→22:52)
[2018-11-20] MEDS: PROPOFOL 100 ML IV SCH ×2 (06:11→22:30)
--- NOTE | 2018-11-20 09:00 | NUR ---
Sedation vacation held - patient attempts to open eyes to voice. Addendum: 11/20/18 at 1306 by Kristyn Rossi RN Amended: Links added.
[2018-11-20] MEDS: ASPirin 81 mg TAB PO SCH (11:10)
[2018-11-20] MEDS: PANTOPRAZOLE 40 MG/10 ML VIAL IV SCH (11:11)
[2018-11-20] MEDS: cloNIDine HCL 0.1 MG TAB GT SCH ×2 (11:11→22:53)
[2018-11-20] MEDS ORDERED: DEXTROSE (50%) 50ML SYRG IV PRN ×2 (15:15→16:00)
--- NOTE | 2018-11-20 15:15 | NUR ---
Dr. Lama visits and examines patient. phones et updated on patient- orders received.
[2018-11-20] MEDS: ACCU-CHEK COMFORT CURVE STRIP VI SCH (18:00)
[2018-11-20] MEDS ORDERED: ACCU-CHEK COMFORT CURVE STRIP VI SCH (18:00)
[2018-11-20] MEDS ORDERED: InsuLIN REG 1unit/0.01ml Soln (100units/ml) SC SCH (18:00)
[2018-11-20] MEDS: InsuLIN REG 1unit/0.01ml Soln (100units/ml) SC SCH (18:00)
--- NOTE | 2018-11-20 18:15 | NUR ---
80 ml TF residual noted with aspiration - TF held.
[2018-11-20] MEDS: fentaNYL Drip 2500mCg/250mlNS 250 ML IV SCH ×2 (20:25→22:40)
--- NOTE | 2018-11-20 21:52 | NUR ---
DEEP ETT SUCTION DUE TO PATIENT COUGHING AND SATS 87%, LARGE AMT. OF PINK, TINGED SECRETIONS, THIN AND BROWN PLUGS. HR 145, SBP 199/130, SINUS, SATS 82%, SEDATION INCREASED, FENTANYL 150 MCG/HR AND DIPRIVAN TO 50 MCG/KG/MIN. FIO2 UP TO 45%, R.T NOTIFIED
--- NOTE | 2018-11-20 21:58 | NUR ---
ST 108 WITH FREQUENT PVC'S, SATS 97%, PT. APPEARS MORE CALM.
[2018-11-20] MEDS: ATORVASTATIN 20 MG TAB PO SCH (22:52)
--- NOTE | 2018-11-20 22:57 | NUR ---
SPOKE TO DR. WALKER REGARDING HR 130-140'S, BP 199/140'S, SATS LOW 80'S, FIO2 UP TO 70%, AND LARGE AMT. OF PINK TINGED, FROTHY SECRETIONS. ORDERS RECEIVED, WILL INITIATE.
--- NOTE | 2018-11-20 23:25 | NUR ---
VERSED STARTED AT 2 MG/HR, WILL CONTINUE TO MONITOR.
--- NOTE | 2018-11-20 23:27 | NUR ---
CXR AND ABG COMPLETED. PO2 65.8 ON 80% FIO2. GHR 130, SATS 89%. DR. PRESLEY PAGED TO INFORM OF CHANGES, X-RAY AND ABG'S RESULTS. ORDER FOR LASIX 40 MG IV RECEIVED, WILL GIVE.
[2018-11-20] MEDS ORDERED: FUROSEMIDE 40 MG/4 ML VIAL ONE (23:33)
--- NOTE | 2018-11-20 23:40 | NUR ---
HR 88, SBP - 160/79, SATS 96%
[2018-11-20] MEDS ORDERED: FUROSEMIDE 40 MG/4 ML VIAL IV ONE (23:45)
[2018-11-21] VITALS (108 sets, daily range): BP systolic 109–192; BP diastolic 38–99
[2018-11-21] MEDS: ACCU-CHEK COMFORT CURVE STRIP VI SCH ×4 (00:06→17:48)
[2018-11-21] MEDS: METOCLOPRAMIDE HCL 5MG/ml INJ 2ml VIAL IV SCH ×4 (00:15→17:48)
[2018-11-21] MEDS: PIPERACILLIN-TAZOB 2.25GM 50 ML IV SCH ×4 (00:15→17:48)
[2018-11-21] MEDS: NOREPINEPHRINE 8 MG/250ML KIT 250 ML IV SCH (00:39)
--- NOTE | 2018-11-21 01:15 | NUR ---
VERSED 2 MG/HR, FENTANYL 200 MCG/HR., DIPRIVAN 40 MCG/KG/MIN. PT. RESTING QUIETLY. HR 61, SBP 124/50, SATS 100%, ON 70% FIO2.
[2018-11-21] MEDS: ALBUTEROL SULF 2.5 MG/0.5ML(0.5%) NEB SOLN NEB SCH ×6 (02:07→22:04)
--- NOTE | 2018-11-21 03:47 | NUR ---
TF off at this time, possible c/pap trial today.
[2018-11-21 03:57] LABS: Basophils # (auto) 0 uL; Eosinophils # (auto) 0 uL; Hematocrit 31.9 % (36.0-46.0); Hemoglobin 10.3 g/dL (12.2-16.2); Lymphocytes # (auto) 0.5 uL; Lymphocytes % (auto) 3.4 % (10.0-50.0); Mean Corpuscular Hemoglobin 29.6 pg (28.0-32.0); Mean Corpuscular Hgb Conc. 32.4 g/dL (32.0-36.0); Mean Corpuscular Volume 91.4 fL (80.0-100.0); Monocytes # (auto) 0.2 uL; Monocytes % (auto) 1.5 % (0.0-12.0); Neutrophils % (auto) 95.1 % (37.0-80.0); Platelet Count (auto) 326 10^3/uL (140-450); Red Blood Cells 3.49 10^6/uL (4.0-5.20); Red Cell Distribution Width 14.7 % (11.8-14.3); White Blood Cell 15.8 10^3/uL (4.4-10.8)
[2018-11-21 04:28] LABS: Albumin 2.2 g/dL (3.4-5.0); BUN/Creatinine Ratio 31.1; Calcium 8.4 mg/dL (8.5-10.1); Potassium 3.3 mmol/L (3.5-5.1)
[2018-11-21 04:31] LABS: Bilirubin, Total 0.4 mg/dL (0.2-1.0); Total Protein 5.8 g/dL (6.4-8.2)
[2018-11-21] MEDS: methylPREDNISolone SOD SUCC 125 MG/2 ML VL IV SCH ×3 (05:39→22:06)
[2018-11-21] MEDS: InsuLIN REG 1unit/0.01ml Soln (100units/ml) SC SCH ×4 (05:52→17:48)
[2018-11-21] MEDS: PROPOFOL 100 ML IV SCH ×2 (06:00→20:43)
--- NOTE | 2018-11-21 06:42 | NUR ---
RT NOTE: BREATHING TX HELD DUE TO PT HR BEING X2 HIGHER THAN NORMAL BASE LINE OF 50'S. HR WAS 110-115. WILL CONTINUE TO MONITOR.
--- NOTE | 2018-11-21 07:00 | NUR ---
PT. CONTINUES ON FENTANYL, VERSED AND PROPOFOL, ANY CHANGES ON DOSAGES CAUSE PATIENT TO BECOME VERY RESTLESS AND BECOME HYPERTENSIVE, TACHYPNEIC, TACHYCARDIC AND DESATURATES.
[2018-11-21] MEDS: ASPirin 81 mg TAB PO SCH (09:26)
[2018-11-21] MEDS: PANTOPRAZOLE 40 MG/10 ML VIAL IV SCH (09:27)
[2018-11-21] MEDS: cloNIDine HCL 0.1 MG TAB GT SCH ×2 (09:27→22:07)
--- NOTE | 2018-11-21 09:30 | NUR ---
SBP 168/66, HYDRALAZINE 10 MG IV PROVIDED. WILL CONTINUE TO MONITOR.
[2018-11-21] MEDS: hydrALAZINE HCL 20 MG/ML VL IV PRN ×2 (09:32→23:14)
--- NOTE | 2018-11-21 10:45 | NUR ---
PT'S DAUGHTER NORBERTO AT BEDSIDE. DISCUSSED PATIENT FULL CODE STATUS SHE STATES STATISTICIAN MATHEMATICAL FROM PT'S INSURANCE COMPANY CALLED ABOUT PT. PREVIOUSLY REQUESTING DNR STATUS.
--- NOTE | 2018-11-21 11:04 | NUR ---
Nutrition Follow-up Notes Wt.: 61.3 kg based on bed scale today Pt remains intubated, no immediate family member at bedside during rounds earlier. Pt's currently sedated with Propofol @ 6.532 ml/hr providing 172 kcal from Fat. Pt's NPO, EN support temporarily held d/t high residuals noted by RN. Pt's previously on Jevity 1.2 Harish @ 30 ml/hr providing 864 kcal, 40 gms pro and 581 ml free water. Est. Needs based on IBW (59 kg): 1450 kcal to 1750 kcal (25-30 kcal/kgIBW), 59 gms to 71 gms pro (1.0-1.2 gms/kgBW). Will continue to monitor pertinent labs and reassess nutrient needs prn Labs: Gluc 134 H, Na 146 H, K 3.3 L, Cl 110 H, BUN 28 H, Ca 8.4 L, Tpro 5.8 L, Alb 2.2 L Skin: Bandar scale 12, high risk, skin intact per industrial economist. GI: Pt had 1x BM 11/20/18 per industrial economist. PES: Increased nutrient needs r/t current/chronic medical condition aeb intubated, sedated, NPO. Altered nutrition related lab values r/t current/chronic medical condition aeb hypocapnia, hypokalemia, hyperchloremia, elev. renal labs hypocalcemia and severe hypoalbuminemia Will continue to monitor NPO status, EN tolerance, skin status, pertinent labs and weight trend. F/u in 2 to 3 days. Rec.: 1.) If still NPO, consider to resume EN support at lower rate and gradually increase feeding of Jevity 1.2 Harish to 50 ml/hr goal rate as tolerated while on current rate of Propofol, when medically appropriate. 2.) If Albumin/Prealbumin level continue trending down, not tolerating EN support, consider PN support, start on Clinimix @ 42 ml/hr to provide 510 kcal, 340 NPCs and 42.5 gms pro. 3.) Advance gradually to oral diet when medically appropriate. 4.) Refer to RD for further nutrition educ. and weight monitoring upon discharge. 5.) Continue current plan of care.
--- NOTE | 2018-11-21 11:30 | NUR ---
SBAR REPORT RECEIVED FROM CORNEL CHOUDHARY AT THIS TIME FOR CONTINUITY OF CARE. SEE FLOWSHEET FOR MORE DETAILS. NO MAJOR CHANGES NOTED IN PT'S CONDITION. PT APPEARS RESTLESS AT THIS TIME (INCREASED HEART RATE, RESPIRATORY RATE, INCREASED SBP, PT MOVING AROUND FREQUENTLY, ETC.). INCREASING SEDATION FOR COMFORT AT THIS TIME (ATTEMPTING TO KEEP SEDATION LOW), VSS.
--- NOTE | 2018-11-21 11:43 | NUR ---
REPORT TO ALEX CHOUDHARY
--- NOTE | 2018-11-21 12:40 | NUR ---
MD PRESLEY AT BEDSIDE. UPDATED MD WITH PT OVERALL STATUS INCLUDING ABNORMAL LAB VALUES AND MOST RECENT CHEST XRAY. NEW ORDERS GIVEN AND IMPLEMENTED. PER MD, WILL HOLD OFF ON EXTUBATION AND REEVALUATE TOMORROW AM.
--- NOTE | 2018-11-21 13:50 | NUR ---
FAMILY AT BEDSIDE. UPDATED FAMILY (PT'S DTR) WITH POC. NO FURTHER QUESTIONS AT THIS TIME. FAMILY VERBALIZED UNDERSTANDING.
[2018-11-21] MEDS: ACETYLCYSTEINE 10 %(100MG/ML) SOL 4ML NEB SCH ×3 (14:03→22:04)
[2018-11-21] MEDS: FUROSEMIDE 40 MG/4 ML VIAL IV SCH (17:48)
[2018-11-21] MEDS: ATORVASTATIN 20 MG TAB PO SCH (22:07)
[2018-11-22] VITALS (107 sets, daily range): BP systolic 101–209; BP diastolic 35–124
[2018-11-22] MEDS: ACCU-CHEK COMFORT CURVE STRIP VI SCH ×4 (00:15→17:50)
[2018-11-22] MEDS: PIPERACILLIN-TAZOB 2.25GM 50 ML IV SCH ×3 (00:15→13:10)
[2018-11-22] MEDS: METOCLOPRAMIDE HCL 5MG/ml INJ 2ml VIAL IV SCH ×4 (00:15→17:47)
[2018-11-22] MEDS: InsuLIN REG 1unit/0.01ml Soln (100units/ml) SC SCH ×4 (00:23→17:50)
[2018-11-22] MEDS: NOREPINEPHRINE 8 MG/250ML KIT 250 ML IV SCH (00:39)
[2018-11-22] MEDS: MIDAZOLAM DRIP 50 mg/50mL 50 ML IV SCH ×2 (01:01→08:10)
[2018-11-22] MEDS: ALBUTEROL SULF 2.5 MG/0.5ML(0.5%) NEB SOLN NEB SCH ×6 (02:21→22:22)
[2018-11-22] MEDS: ACETYLCYSTEINE 10 %(100MG/ML) SOL 4ML NEB SCH ×6 (02:22→22:22)
--- NOTE | 2018-11-22 03:45 | NUR ---
HTN PATIENT IS HYPERTENSIVE DURING AND AFTER ABG DRAW. WILL MONITOR CLOSELY.
[2018-11-22 03:54] LABS: Basophils # (auto) 0 uL; Eosinophils # (auto) 0 uL; Hematocrit 29.3 % (36.0-46.0); Hemoglobin 9.9 g/dL (12.2-16.2); Lymphocytes # (auto) 0.7 uL; Lymphocytes % (auto) 7.2 % (10.0-50.0); Mean Corpuscular Hgb Conc. 33.6 g/dL (32.0-36.0); Mean Corpuscular Volume 89.1 fL (80.0-100.0); Monocytes # (auto) 0.3 uL; Monocytes % (auto) 2.7 % (0.0-12.0); Neutrophils # (auto) 8.4 uL; Neutrophils % (auto) 90.1 % (37.0-80.0); Platelet Count (auto) 312 10^3/uL (140-450); Red Blood Cells 3.29 10^6/uL (4.0-5.20); Red Cell Distribution Width 14.7 % (11.8-14.3); White Blood Cell 9.4 10^3/uL (4.4-10.8)
[2018-11-22 04:25] LABS: Albumin 2.3 g/dL (3.4-5.0); Calcium 8.5 mg/dL (8.5-10.1); Potassium 3.5 mmol/L (3.5-5.1)
[2018-11-22 04:29] LABS: BUN/Creatinine Ratio 33.7; Bilirubin, Total 0.5 mg/dL (0.2-1.0); Total Protein 5.5 g/dL (6.4-8.2)
[2018-11-22] MEDS: PROPOFOL 100 ML IV SCH ×2 (06:13→17:14)
[2018-11-22] MEDS: FUROSEMIDE 40 MG/4 ML VIAL IV SCH ×2 (06:14→17:47)
[2018-11-22] MEDS: methylPREDNISolone SOD SUCC 125 MG/2 ML VL IV SCH ×3 (06:15→22:06)
--- NOTE | 2018-11-22 07:30 | NUR ---
REPORT REPORT RECEIVED FROM MELBA RNMARYSOL. PT RESTING IN BED, ON THE VENTILATOR AND SEDATD . NO DISTRESS NOTED. CONTINUE TO MONITOR.
--- NOTE | 2018-11-22 07:37 | NUR ---
ASSESSMENT PT RESTING IN BED WITH EYES CLOSED. PT SEDATED ON VERSED, FENTANYL AND DIPRIVAN, WHILE ON THE VENTILATOR. MITTENS TO BOTH HANDS TO PREVENT PULLING AT TUBES/IVS. 7.5 ETT/20 AT THE LIP, TV 400, AC 16, 30% FIO2 AND PEEP OF 5. LUNGS CLEAR THROUGHOUT AND SUCTIONED FOR SMALL AMOUNT OF THIN CLEAR FLUID VIA ETT. TELE SR [address] IN LEAD V. PALPABLE PULSES TO ALL EXTREMITIES AND SCDS TO BLE. +2 PITTING EDEMA TO LEFT HAND. ABD SOFT WITH HYPOACTIVE BOWEL SOUNDS. NGT TO THE LEFT NARES WITH 5 ML RESIDUAL NOTED, BROWN. SMALL BROWN LOOSE BM. PERICARE PROVIDED. PERIRECTAL EXCORIATION NOTED. Z GUARD REAM APPLIED. GRACE CATHETER DRAINING CLEAR LIGHT YELLOW URINE. IVF INCLUDING SEDATION MEDS, INFUSING TO TLC TO THE RS, SITE BENIGN. CONTINUE TO MONITOR.
[2018-11-22] MEDS: PANTOPRAZOLE 40 MG/10 ML VIAL IV SCH (09:58)
[2018-11-22] MEDS: ASPirin 81 mg TAB PO SCH (09:59)
[2018-11-22] MEDS: cloNIDine HCL 0.1 MG TAB GT SCH ×2 (09:59→22:06)
--- NOTE | 2018-11-22 10:50 | NUR ---
TURNED DIPRIVAN DOWN TO 10 MCG FOR CPAP TRIAL. CONTINUE TO MONITOR.
--- NOTE | 2018-11-22 11:03 | NUR ---
SEDATION/FAMILY TURNED OFF LAST 10 MCG OF DIPRIVAN AND TURNED FENTANYL DOWN TO 50 MCG/HR. DAUGHTER AT THE BEDSIDE AND UPDATED ON PT'S CURRENT CONDITION AND POC INCLUDING POSSIBLE CPAP TRIAL.
--- NOTE | 2018-11-22 11:28 | NUR ---
HIGH BP PT WITH BP OF 192/96 AND HR 118. MEDICATED WITH HYDRALAZINE PER MD ORDER. CONTINUE TO MONITOR.
[2018-11-22] MEDS: hydrALAZINE HCL 20 MG/ML VL IV PRN ×2 (11:29→18:51)
--- NOTE | 2018-11-22 11:45 | NUR ---
MD/CPAP SPOKE WITH DR Tank PRESLEY TO UPDATE ON PT'S ELEVATED HR 120-140'S AND SBP 170-180'S. DOES NOT WANT TO PROCEED TO CPAP. INSTEAD GIVE METOPROLOL 2.5 MG IV AND IF VS IMPROVED , CONTINUE ON SIMV. IF PT REMAINS UNSTABLE, RETURN TO PREVIOUS AC SETTINGS, BUT WITH A RATE OF 12. NOTIFIED RT PALMIRA.
[2018-11-22] MEDS: METOPROLOL TARTRATE 1MG/1ML-5ML VIAL IV PRN (11:58)
[2018-11-22] MEDS ORDERED: METOPROLOL TARTRATE 1MG/1ML-5ML VIAL IV PRN (12:00)
[2018-11-22] MEDS: ACETAMINOPHEN 650 mg PER 20 mL UD GT PRN (13:24)
--- NOTE | 2018-11-22 13:30 | NUR ---
TEMP/SHAZIA GALDAMEZ PT MEDICATED WITH TYLENOL 650 MG PER NGT FOR ORAL TEMP OF 101.2 . ICE PACKS APPLIED UNDER BOTH ARMS AND COOL WASHCLOTH TO FOREHEAD. HAVE PAGED DR Maame CROCKER TO NOTIFY OF ELEVATED TEMP.
[2018-11-22] MEDS: Jevity 1.2 Cal/Fiber 1 Liter GT SCH (15:15)
--- NOTE | 2018-11-22 15:15 | NUR ---
RESTARTED NGT FEEDINGS OF JEVITY 1.2 AT 15 ML/HR. MONITOR RESIDUALS.
--- NOTE | 2018-11-22 15:40 | NUR ---
MD RETURNING CALL RECEIVED A PHONE CALL FROM DR Maame CROCKER AND ORDERS RECEIVED FOR URINE, BLOOD, AND SPUTUM CULTURES AND DC ZOSYN AND START ON MEROPENEM I GRAM IV Q 8 HRS.
[2018-11-22] MEDS ORDERED: MEROPENEM 1GM IVPB 100 ML IV ONE (15:45)
[2018-11-22] MEDS ORDERED: hydrALAZINE HCL 20 MG/ML VL IV ONE (19:15)
--- NOTE | 2018-11-22 19:15 | NUR ---
GIVEING REPORT TO MELBA RNJULIET. DR CROCKER HERE ND UPDATED ON THE PT'S CURRENT CONDITION. HE ORDERED FOR ANOTHER 10 MG IV DOSE OF HYDRALAZINE AND IF NOT EFFECTIVE IN CONTROLLING HER BP, TO START PT ON NICARDIPINE DRIP.
--- NOTE | 2018-11-22 19:50 | NUR ---
BLOOD PRESSURE 211/95. PER MD ORDERS, 10 MG OF HYDRALAZINE IV GIVEN.
--- NOTE | 2018-11-22 20:00 | NUR ---
OPEN PT LYING IN BED OCCASIONALLY MOVING LOWER EXTREMITIES. EYES CLOSED, DOES NOT RESPOND TO VERBAL BUT PAINFUL STIMULI. PT IS ON VENTILATOR AND SEDATED WITH PROPOFOL, FENTANYL AND VERSED. MITTENS ARE APPLIED BILATERALLY TO PREVENT PULLING ON LINES. LUNGS CLEAR TO AUSCULTATION. SMALL AMOUNT OF CLEAR SECRETIONS SUCTIONED THROUGH ET TUBE. POSITIVE GAG REFLEX. PUPILS ARE 3 SLUGGISH. PULSES PALPABLE. NGT IN LEFT NARE. JEVITY RUNNING AT 15 WITH <5MLS OF RESIDUALS. HYPOACTIVE BOWEL SOUNDS. SKIN INTACT WITH EXCORIATION NOTED TO PERIRECTAL AREA. Z-GUARD APPLIED. GRACE CATHETER DRAINING CLEAR STRAW COLORED URINE. GRACE HUNG BELOW BLADDER, DRAINING TO GRAVITY, FREE OF KINKS. SCDS BILATERAL TO LOWER EXTREMITIES. ALL ALARMS ON AND AUDIBLE. WILL CONTINUE TO MONITOR. PT IN FULL VIEW OF RN.
[2018-11-22] MEDS: NICARDIPINE 25MG/250ML BAG KIT 250 ML IV SCH (20:14)
[2018-11-22] MEDS ORDERED: NICARDIPINE 25MG/250ML BAG KIT 250 ML IV ONE (20:18)
[2018-11-22] MEDS: fentaNYL Drip 2500mCg/250mlNS 250 ML IV SCH (20:25)
--- NOTE | 2018-11-22 20:35 | NUR ---
NICARDIPINE DRIP STARTED PER MD ORDER ACCORDING TO DRIP PROTOCOL AT 5MG. BLOOD PRESSURE 196/75.
[2018-11-22 21:20] LABS: Basophils # (auto) 0 uL; Basophils % (auto) 0.2 % (0.0-2.0); Eosinophils # (auto) 0 uL; Hematocrit 33.1 % (36.0-46.0); Hemoglobin 10.8 g/dL (12.2-16.2); Lymphocytes # (auto) 0.7 uL; Lymphocytes % (auto) 3.8 % (10.0-50.0); Mean Corpuscular Hemoglobin 29.1 pg (28.0-32.0); Mean Corpuscular Hgb Conc. 32.6 g/dL (32.0-36.0); Mean Corpuscular Volume 89.1 fL (80.0-100.0); Monocytes # (auto) 0.8 uL; Monocytes % (auto) 4.4 % (0.0-12.0); Neutrophils # (auto) 16.9 uL; Neutrophils % (auto) 91.6 % (37.0-80.0); Nucleated Red Blood Cells % 0.2 %; Platelet Count (auto) 426 10^3/uL (140-450); Red Blood Cells 3.71 10^6/uL (4.0-5.20); Red Cell Distribution Width 14.8 % (11.8-14.3); White Blood Cell 18.4 10^3/uL (4.4-10.8)
--- NOTE | 2018-11-22 21:30 | NUR ---
BLOOD PRESSURE 101/35. NICARDIPINE DRIP TURNED DOWN TO 3MG
[2018-11-22 21:32] LABS: BUN/Creatinine Ratio 32.7; Calcium 8.7 mg/dL (8.5-10.1); Magnesium 2.3 mg/dL (1.6-2.6)
[2018-11-22 21:35] LABS: Potassium 2.8 mmol/L (3.5-5.1)
--- NOTE | 2018-11-22 21:41 | NUR ---
CRITICAL LAB VALUE/ CALLED MD POTASSIUM LEVEL OF 2.8. NEW ORDERS RECEIVED.
[2018-11-22] MEDS: ATORVASTATIN 20 MG TAB PO SCH (22:05)
[2018-11-22] MEDS: MEROPENEM 1GM IVPB 100 ML IV SCH (22:06)
[2018-11-22] MEDS: POTASSIUM CHL 20MEQ/100ML 100 ML IV SCH ×2 (22:07→23:45)
[2018-11-23] VITALS (100 sets, daily range): BP systolic 88–233; BP diastolic 34–96
[2018-11-23] MEDS: POTASSIUM CHL 20MEQ/100ML 100 ML IV SCH ×2 (02:06→03:45)
--- NOTE | 2018-11-23 02:10 | NUR ---
BLOOD PRESSURE 89/42. NICARDIPINE DRIP TURNED OFF AT THIS TIME.
[2018-11-23] MEDS: ALBUTEROL SULF 2.5 MG/0.5ML(0.5%) NEB SOLN NEB SCH ×6 (02:20→22:17)
[2018-11-23] MEDS: ACETYLCYSTEINE 10 %(100MG/ML) SOL 4ML NEB SCH ×6 (02:20→22:17)
--- NOTE | 2018-11-23 02:40 | NUR ---
Central Line Dressing Change Central line dressing change done with a sterile technique. Cleansed with chloraprep scrub/alcohol swabs. bio-patch applied as available. Occlusive dressing applied.
[2018-11-23] MEDS: MIDAZOLAM DRIP 50 mg/50mL 50 ML IV SCH ×3 (04:00→20:26)
[2018-11-23 04:03] LABS: Basophils # (auto) 0 uL; Basophils % (auto) 0.2 % (0.0-2.0); Eosinophils # (auto) 0 uL; Hematocrit 29.1 % (36.0-46.0); Hemoglobin 9.6 g/dL (12.2-16.2); Lymphocytes # (auto) 0.7 uL; Lymphocytes % (auto) 6.4 % (10.0-50.0); Mean Corpuscular Hemoglobin 29.8 pg (28.0-32.0); Mean Corpuscular Hgb Conc. 33.1 g/dL (32.0-36.0); Monocytes # (auto) 0.5 uL; Monocytes % (auto) 4.2 % (0.0-12.0); Neutrophils # (auto) 9.8 uL; Neutrophils % (auto) 89.2 % (37.0-80.0); Nucleated Red Blood Cells % 0.1 %; Platelet Count (auto) 322 10^3/uL (140-450); Red Blood Cells 3.23 10^6/uL (4.0-5.20); Red Cell Distribution Width 15.1 % (11.8-14.3)
[2018-11-23 04:47] LABS: BUN/Creatinine Ratio 36.8; Calcium 8.2 mg/dL (8.5-10.1)
--- NOTE | 2018-11-23 06:00 | NUR ---
RESIDUALS 2000 JEVITY RUNNING AT 15. RESIDUAL <5ML JEVITY INCREASED TO 20. 0000 JEVITY RUNNING AT 20. RESIDUAL AT 30MLS. 0400 RESIDUALS AT 30 MLS 0600 RESIDUALS AT 60 MLS. TUBE FEEDING TURNED OFF AT THIS TIME.
[2018-11-23] MEDS: MEROPENEM 1GM IVPB 100 ML IV SCH ×3 (06:05→21:44)
[2018-11-23] MEDS: FUROSEMIDE 40 MG/4 ML VIAL IV SCH ×2 (06:05→17:54)
[2018-11-23] MEDS: ACCU-CHEK COMFORT CURVE STRIP VI SCH ×4 (06:06→17:54)
[2018-11-23] MEDS: METOCLOPRAMIDE HCL 5MG/ml INJ 2ml VIAL IV SCH ×4 (06:06→17:54)
[2018-11-23] MEDS: InsuLIN REG 1unit/0.01ml Soln (100units/ml) SC SCH ×4 (06:06→17:54)
[2018-11-23] MEDS: NICARDIPINE 25MG/250ML BAG KIT 250 ML IV SCH ×5 (06:14→16:14)
--- NOTE | 2018-11-23 06:44 | NUR ---
BLOOD PRESSURE 161/73 NICARDIPINE DRIP TURNED BACK ON. HR 120'S. PT MOVING EXTREMITIES AND BITING ET TUBE
--- NOTE | 2018-11-23 07:30 | NUR ---
REPORT RECEIVED FROM JULIET REILLY RN. PT RESTING IN BED, SEDATED WHILE ON THE VENTILATOR. CONTINUE TO MONITOR.
--- NOTE | 2018-11-23 07:35 | NUR ---
BP OF 121/45, DECREASED NICARDIPINE FROM 5 MG TO 2.5 MG. CONTINUE TO MONITOR BP.
--- NOTE | 2018-11-23 07:45 | NUR ---
ASSESSMENT PT SEDATED ON VERSED, FENTANYL , DIPRIVAN. NO SPONTANEOUS MOVEMENT NOTED. PUPILS 3 AND SLUGGISH. M,ITTENS TO BOTH HANDS TO PREVENT PULLING AT TUBES. ON THE VENTILATOR WITH 7.5 ETT/21.5 AT THE LIP. TV 400, AC 12, 30% AND PEEP OF 5. LUNGS CLEAR THROUGHOUT. SUCTIONED VIA ETT AND ORALLY FOR SMALL AMOUNT OF THIN CLEAR FLUID. TELE SR [address] ELEVATION IN LEAD V AND WITH PVCS NOTED. PALPABLE PULSES TO ALL EXTREMITIES WITH MILD EDEMA NOTED TO LEFT HAND. SCDS TO BLE. ABD SOFT WITH HYPOACTIVE BOWEL SOUNDS. LEFT NARES NGT IN PLACE WITH NO RESIDUAL NOTED. GRACE CATHETER DRAINING LIGHT CLEAR YELLOW URINE. INCONTINENT OF SMALL AMOUNT OF THICK LIQUID BROWN BM. VÍCTOR CARE GIVEN. VÍCTOR RECTAL AREA WITH INCONTINENT ASSOCIATED DERMATITIS. Z GUARD CREAM APPLIED. TURNED FOR COMFORT TO HER LEFT SIDE. OPTIFOAM DRESSING TO SACRUM, SKIN UNDERNEATH IS CLEAR. CONTINUE TO MONITOR.
--- NOTE | 2018-11-23 07:45 | NUR ---
PT TEACHING PT UNABLE TO BENEFIT FROM PT TEACHING PT IS SEDATED WHILE ON THE VENTILATOR. Addendum: 11/23/18 at 1626 by Kelly Kirkland RN Amended: Links added.
[2018-11-23] MEDS: NOREPINEPHRINE 8 MG/250ML KIT 250 ML IV SCH (09:01)
[2018-11-23] MEDS: methylPREDNISolone SOD SUCC 125 MG/2 ML VL IV SCH ×2 (10:00→21:44)
[2018-11-23] MEDS: fentaNYL Drip 2500mCg/250mlNS 250 ML IV SCH ×2 (10:00→20:25)
[2018-11-23] MEDS: ASPirin 81 mg TAB PO SCH (10:00)
[2018-11-23] MEDS: PANTOPRAZOLE 40 MG/10 ML VIAL IV SCH (10:00)
--- NOTE | 2018-11-23 11:13 | NUR ---
FAMILY RECEIVED A PHONE CALL FROM PT'S DAUGHTER. AFTER VERIFYING PASSWORD, I UPDATED HER ON THE PT'S CURRENT CONDITION AND ANSWERED HER QUESTIONS.
--- NOTE | 2018-11-23 11:28 | NUR ---
Nutrition Follow-up Notes Wt.: 57.2 kg Pt remains intubated, no immediate family member at bedside during rounds earlier. Pt's currently sedated with Propofol @ 14.37 ml/hr providing 379 kcal from Fat. Pt's NPO, EN with Jevity 1.2 Harish @ 15 ml/hr providing 432 kcal, 20 gms pro and 290 ml free water. per RN pt was off feeding this am and just re started. RN informed of rec per MD approval Est. Needs based on IBW (59 kg): 1450 kcal to 1750 kcal (25-30 kcal/kgIBW), 59 gms to 71 gms pro (1.0-1.2 gms/kgBW). Will continue to monitor pertinent labs and reassess nutrient needs prn Labs: BUN 32 H, CO2 33 H, GLU 137 H, CA 8.2 L, ALB 2.3 L Skin: Bandar scale 13, mod risk, skin intact per hydraulic assembler. GI: Pt had 2 BM today per hydraulic assembler. PES: Increased nutrient needs r/t current/chronic medical condition aeb intubated, sedated, NPO. Altered nutrition related lab values r/t current/chronic medical condition aeb hypocapnia, hypokalemia, hyperchloremia, elev. renal labs hypocalcemia and severe hypoalbuminemia Will continue to monitor NPO status, EN tolerance, skin status, pertinent labs and weight trend. F/u in 2 to 3 days. Rec.: 1.) If still NPO, consider to resume EN support at lower rate and gradually increase feeding of Jevity 1.2 Harish to 50 ml/hr goal rate as tolerated while on current rate of Propofol, when medically appropriate. 2.) If Albumin/Prealbumin level continue trending down, not tolerating EN support, consider PN support, start on Clinimix @ 42 ml/hr to provide 510 kcal, 340 NPCs and 42.5 gms pro. 3.) Advance gradually to oral diet when medically appropriate. 4.) Refer to RD for further nutrition educ. and weight monitoring upon discharge. 5.) Continue current plan of care.
[2018-11-23] MEDS: cloNIDine HCL 0.1 MG TAB GT SCH ×2 (12:18→21:44)
[2018-11-23] MEDS: hydrALAZINE HCL 20 MG/ML VL IV PRN (13:48)
--- NOTE | 2018-11-23 15:30 | NUR ---
ORAL TEMP OF 101.1 AND MEDICATED WITH TYLENOL 650MG VIA NGT AND ICE PACKS APPLIED. DAUGHTER AT THE BEDSIDE AND AWARE.
[2018-11-23] MEDS: ACETAMINOPHEN 650 mg PER 20 mL UD GT PRN (15:45)
--- NOTE | 2018-11-23 18:30 | NUR ---
ORAL TEMP DOWN TO 99.2. NICARDIPINE DRIP AT 5 MG AND SBP 170-180. CONTINUE TO MONITOR.
--- NOTE | 2018-11-23 19:15 | NUR ---
REPORT GIVEN TO JULIET REILLY RN.
--- NOTE | 2018-11-23 19:35 | NUR ---
OPEN RECEIVED PT ON MECHANICAL VENTILATOR AND SEDATED ON PROPOFOL, VERSED, AND FENTANYL. PT IS CURRENTLY ON NICARDIPINE DRIP. PT DOES NOT RESPOND TO STIMULI. POSITIVE GAG REFLEX UPON SUCTION. PUPILS ARE 3 AND SLUGGISH. PT MOVES LOWER EXTREMITIES NOT PURPOSELY. NGT TO LEFT NARE, PATENT AND AUSCULTATED RUNNING JEVITY AT 20 WITH 5 MLS OF RESIDUAL. BOWEL SOUNDS HYPOACTIVE. UPON ASSESSMENT PT HAD LARGE RUNNY GREEN/BROWN STOOL. EXCORIATION TO PERIRECTAL AREA. Z GUARD APPLIED. PT CLEANED AND TURNED TO LEFT SIDE. GRACE DRAINING TO GRAVITY WITH PALE YELLOW URINE. SCDS APPLIED BILATERALLY TO LOWER EXTREMITIES. WILL CONTINUE TO MONITOR PT CLOSELY.
[2018-11-23] MEDS: ATORVASTATIN 20 MG TAB PO SCH (21:44)
--- NOTE | 2018-11-23 22:04 | NUR ---
DR CROCKER AT BEDSIDE. DISCUSSED PATIENTS CONDITION AND PLAN OF CARE.
--- NOTE | 2018-11-23 22:05 | NUR ---
Dr CROCKER UPDATED FAMILY ON PT CONDITION. POSSIBLE TERMINAL WEAN ON MONDAY.
[2018-11-24] VITALS (116 sets, daily range): BP systolic 64–197; BP diastolic 29–115
[2018-11-24] MEDS: NICARDIPINE 25MG/250ML BAG KIT 250 ML IV SCH ×5 (00:02→22:14)
[2018-11-24] MEDS: InsuLIN REG 1unit/0.01ml Soln (100units/ml) SC SCH ×4 (00:07→17:41)
[2018-11-24] MEDS: ACCU-CHEK COMFORT CURVE STRIP VI SCH ×4 (00:07→17:40)
[2018-11-24] MEDS: ALBUTEROL SULF 2.5 MG/0.5ML(0.5%) NEB SOLN NEB SCH ×6 (02:05→22:23)
[2018-11-24] MEDS: ACETYLCYSTEINE 10 %(100MG/ML) SOL 4ML NEB SCH ×6 (02:06→22:23)
[2018-11-24] MEDS: PROPOFOL 100 ML IV SCH ×2 (02:20→21:53)
[2018-11-24 03:54] LABS: Basophils # (auto) 0 uL; Basophils % (auto) 0.3 % (0.0-2.0); Eosinophils # (auto) 0 uL; Hematocrit 35.5 % (36.0-46.0); Hemoglobin 11.7 g/dL (12.2-16.2); Lymphocytes # (auto) 0.7 uL; Lymphocytes % (auto) 4.9 % (10.0-50.0); Mean Corpuscular Hemoglobin 29.6 pg (28.0-32.0); Mean Corpuscular Hgb Conc. 32.9 g/dL (32.0-36.0); Mean Corpuscular Volume 90.1 fL (80.0-100.0); Monocytes # (auto) 0.5 uL; Monocytes % (auto) 3.4 % (0.0-12.0); Neutrophils % (auto) 91.4 % (37.0-80.0); Nucleated Red Blood Cells % 0.1 %; Platelet Count (auto) 415 10^3/uL (140-450); Red Blood Cells 3.94 10^6/uL (4.0-5.20); Red Cell Distribution Width 15.2 % (11.8-14.3); White Blood Cell 14.2 10^3/uL (4.4-10.8)
[2018-11-24 04:04] LABS: BUN/Creatinine Ratio 32.9; Calcium 8.9 mg/dL (8.5-10.1); Potassium 3.2 mmol/L (3.5-5.1)
--- NOTE | 2018-11-24 05:00 | NUR ---
BLOOD PRESSURE 76/41. NICARDIPINE DRIP TURNED OFF AT THIS TIME.
[2018-11-24] MEDS: MEROPENEM 1GM IVPB 100 ML IV SCH ×3 (06:00→21:49)
[2018-11-24] MEDS: FUROSEMIDE 40 MG/4 ML VIAL IV SCH ×2 (06:11→17:38)
[2018-11-24] MEDS: METOCLOPRAMIDE HCL 5MG/ml INJ 2ml VIAL IV SCH ×4 (06:11→17:38)
[2018-11-24] MEDS: NOREPINEPHRINE 8 MG/250ML KIT 250 ML IV SCH (07:30)
--- NOTE | 2018-11-24 07:30 | NUR ---
REPORT RECEIVED FROM MELBA RNJULIET. PT RESTING IN BED , SEDATED AND INTUBATED. CONTINUE TO MONITOR.
[2018-11-24] MEDS: MIDAZOLAM DRIP 50 mg/50mL 50 ML IV SCH ×2 (07:31→15:52)
[2018-11-24] MEDS: PANTOPRAZOLE 40 MG/10 ML VIAL IV SCH (10:48)
[2018-11-24] MEDS: methylPREDNISolone SOD SUCC 125 MG/2 ML VL IV SCH ×2 (10:49→21:49)
[2018-11-24] MEDS: ASPirin 81 mg TAB PO SCH (10:49)
[2018-11-24] MEDS: cloNIDine HCL 0.1 MG TAB GT SCH ×2 (10:50→22:06)
[2018-11-24] MEDS: METOPROLOL TARTRATE 1MG/1ML-5ML VIAL IV PRN (16:32)
--- NOTE | 2018-11-24 17:00 | NUR ---
MD VISIT PT SEEN AND EXAMINED BY DR MAZARIEGOS. HE SPOKE WITH PT'S FAMILY, INCLUDING DAUGHTER , YAMILETH, AT THE BEDSIDE. DISCUSSED PLAN OF CARE AND POSSIBLE TERMINAL WEAN. HE ANSWERED THEIR QUESTIONS.
--- NOTE | 2018-11-24 17:26 | NUR ---
ORAL TEMP OF 101.1 . ICE PACKS TO AXILLA AND COOL WASHCLOTH TO FOREHEAD, GIVEN TYLENOL 650 MG PER NGT.
[2018-11-24] MEDS: ACETAMINOPHEN 650 mg PER 20 mL UD GT PRN (17:30)
[2018-11-24] MEDS: fentaNYL Drip 2500mCg/250mlNS 250 ML IV SCH (18:52)
[2018-11-24] MEDS ORDERED: FLUCONAZOLE 200MG/100ML 100 ML IV ONE (19:00)
--- NOTE | 2018-11-24 19:36 | NUR ---
WHILE GIVING BEDSIDE REPORT, PT WENT TO INTO V TACH RATE UP TO 180'S. PT GIVEN LIDOCAINE PER ACLS PROTOCOL WITH RATE DOWN TO 130-140'S.
--- NOTE | 2018-11-24 19:37 | NUR ---
Cardiac arrhythmia, V/S unstable, hypokalemia 19.36pm-20.42pm Pt went into V-tach and other cardiac arrhythmia; PVC's, Short run VT, A-flutter, HR and BP fluctuating. The nursing team attached a temporary pacer, withheld TF, adjusted then withheld sedative and Cardene, started Levophed (20.19pm), Bolus NS 500ml, Bolus Amiodarone(20.28pm) and continue Amiodarone per protocol at 1mg/min (20.40pm) as MD ordered. Mg and K obtained and sent to LAB. EKG 12leads obtained x2. 20.42pm Pt converted to sinus rhythm, HR 90's. 20.53pm K 2.9, called Dr. Disla, updated Pt's condition and LABs result, new ordered received, TORB and verified correct. See EMAR for info.
--- NOTE | 2018-11-24 19:45 | NUR ---
CALLED AND SPOKE WITH DR MCCONNELL TO NOTIFY OF PT GOING INTO V TACH RATE OF 180'S AND GIVEN LIDOCAINE PER ACLS PROTOCOL. HE ORDERS FOR AMIODARONE DRIP PER PROTOCOL AND TO RECONSULT DR MOSES. ALSO NOTIFY FAMILY OF CHANGE IN PATIENT'S CONDITION. DR MCCONNELL WOULD ALSO LIKE THE NIGHT RN TO UPDATE HIM.
--- NOTE | 2018-11-24 19:55 | NUR ---
PAGED DR MOSES.
[2018-11-24] MEDS ORDERED: NOREPINEPHRINE 8 MG/250ML KIT 250 ML IV ONE (20:09)
[2018-11-24] MEDS ORDERED: AMIODARONE HCL 900 MG IV ONE (20:19)
[2018-11-24] MEDS ORDERED: AMIODARONE HCL 900 MG in DEXTROSE 500 ML IV SCH (20:30)
[2018-11-24] MEDS ORDERED: AMIODARONE HCL 150 MG in D5W 5% 100 ML IV ONE (20:30)
--- NOTE | 2018-11-24 20:35 | NUR ---
NO CALL RECEIVED FROM DR MOSES. MAGDALENE IRVIN MD.
[2018-11-24 20:49] LABS: Magnesium 2.5 mg/dL (1.6-2.6)
[2018-11-24 20:56] LABS: Potassium 2.9 mmol/L (3.5-5.1)
--- NOTE | 2018-11-24 21:04 | NUR ---
Condition update/ BP fluctuating 21.04pm-23.16pm After EKG converted to sinus rhythm and sinus tachycardia with PVC's, HR ~80's-100's, Pt's BP still fluctuating, from SBP 50's - 180's, adjusted Sedative, Levophed, Cardene accordingly. Withheld Amiodarone 1mg/min at 23.16pm due to sinus bradycardia to 50's and SBP 50's and restarted Levophed. 00.02am EKG SR at 68, SBP 172, restarted Amiodarone 1mg/min and titrated down Levophed. 00.36am Pt waking up and restless, HR 96, BP 224/91, withhold Levophed and increased Sedative back to previous setting. Will continue to monitor.
[2018-11-24] MEDS: POTASSIUM CHL 20MEQ/100ML 100 ML IV SCH (21:38)
[2018-11-24] MEDS ORDERED: AMIODARONE HCL (50 MG/ ML) 3 ML VIAL IV ONE (21:50)
[2018-11-24] MEDS ORDERED: POTASSIUM EFFERVESENT TAB 25 MEQ GT ONE (22:00)
[2018-11-24] MEDS: ATORVASTATIN 20 MG TAB PO SCH (22:06)
--- NOTE | 2018-11-24 22:50 | NUR ---
Elimination, Condition update Pt passed moderate amount of semi-soft to loose dark brown stool. Perirectal and perineal area cleaned, z-guard applied, found blanchable redness at sacrum area, probably due to CPR board and supine position while having V-tach. Removed CPR board and re-position Pt. Will continue to turn q2hr if Pt's condition stable. Continue care.
[2018-11-25] VITALS (81 sets, daily range): BP systolic 81–229; BP diastolic 40–121
[2018-11-25] MEDS: METOCLOPRAMIDE HCL 5MG/ml INJ 2ml VIAL IV SCH ×4 (00:05→17:42)
[2018-11-25] MEDS: POTASSIUM CHL 20MEQ/100ML 100 ML IV SCH (00:05)
--- NOTE | 2018-11-25 00:30 | NUR ---
IV insertion IV access obtained, via clean sterile technique by inserting 22 gauge catheter at right hand after 1 attempt. IV secured properly. No trauma to site. Continue care.
[2018-11-25] MEDS: NOREPINEPHRINE 8 MG/250ML KIT 250 ML IV SCH (00:39)
[2018-11-25] MEDS: ACCU-CHEK COMFORT CURVE STRIP VI SCH ×4 (00:49→17:42)
[2018-11-25] MEDS: InsuLIN REG 1unit/0.01ml Soln (100units/ml) SC SCH ×4 (00:49→17:54)
[2018-11-25] MEDS: MIDAZOLAM DRIP 50 mg/50mL 50 ML IV SCH ×3 (01:10→14:40)
[2018-11-25] MEDS: ACETYLCYSTEINE 10 %(100MG/ML) SOL 4ML NEB SCH ×5 (02:28→18:18)
[2018-11-25] MEDS: ALBUTEROL SULF 2.5 MG/0.5ML(0.5%) NEB SOLN NEB SCH ×5 (02:28→18:18)
[2018-11-25] MEDS ORDERED: AMIODARONE HCL 900 MG in DEXTROSE 500 ML IV SCH (02:30)
[2018-11-25] MEDS: NICARDIPINE 25MG/250ML BAG KIT 250 ML IV SCH ×4 (03:14→17:59)
[2018-11-25 03:51] LABS: Basophils # (auto) 0 uL; Basophils % (auto) 0.1 % (0.0-2.0); Eosinophils # (auto) 0 uL; Hematocrit 35.6 % (36.0-46.0); Hemoglobin 11.5 g/dL (12.2-16.2); Lymphocytes # (auto) 0.9 uL; Lymphocytes % (auto) 5.5 % (10.0-50.0); Mean Corpuscular Hemoglobin 29.3 pg (28.0-32.0); Mean Corpuscular Hgb Conc. 32.3 g/dL (32.0-36.0); Mean Corpuscular Volume 90.7 fL (80.0-100.0); Monocytes # (auto) 0.5 uL; Monocytes % (auto) 3.2 % (0.0-12.0); Neutrophils # (auto) 14.4 uL; Neutrophils % (auto) 91.2 % (37.0-80.0); Platelet Count (auto) 457 10^3/uL (140-450); Red Blood Cells 3.93 10^6/uL (4.0-5.20); White Blood Cell 15.8 10^3/uL (4.4-10.8)
--- NOTE | 2018-11-25 04:00 | NUR ---
Condition update Recently v/s more stable, adjusted sedative and and Levophed slowly accordingly. No fever. NG residual checked, curd 65ml, will continue the same Jevity rate 50ml/hr and titrated down sedative slowly. Continue care.
[2018-11-25 04:08] LABS: Calcium 8.5 mg/dL (8.5-10.1); Potassium 3.9 mmol/L (3.5-5.1)
[2018-11-25 04:12] LABS: BUN/Creatinine Ratio 36.4
[2018-11-25] MEDS: FUROSEMIDE 40 MG/4 ML VIAL IV SCH ×2 (05:39→17:58)
[2018-11-25] MEDS: MEROPENEM 1GM IVPB 100 ML IV SCH ×2 (05:39→14:40)
[2018-11-25] MEDS: PROPOFOL 100 ML IV SCH ×2 (06:48→14:40)
[2018-11-25] MEDS: cloNIDine HCL 0.1 MG TAB GT SCH (08:21)
--- NOTE | 2018-11-25 08:22 | NUR ---
CLONIDINE PO HELD PATIENT IS CURRENTLY ON LEVOPHED GTT.
[2018-11-25] MEDS ORDERED: LIDOCAINE HCL 100 MG/5ML (2%) SYRG INJ IV ONE (09:53)
[2018-11-25] MEDS ORDERED: FLUCONAZOLE 200MG/100ML 100 ML IV SCH (10:00)
[2018-11-25] MEDS: PANTOPRAZOLE 40 MG/10 ML VIAL IV SCH (10:05)
[2018-11-25] MEDS: methylPREDNISolone SOD SUCC 125 MG/2 ML VL IV SCH (10:05)
[2018-11-25] MEDS: ASPirin 81 mg TAB PO SCH (10:05)
--- NOTE | 2018-11-25 10:53 | NUR ---
CARDIOLOGY CONSULT DR. MOLINA AT BEDSIDE. UPDATED ON PATIENTS STATUS AND OCCURRENCE REPORTED THIS A.M. EKG STRIPS SHOWN. MD REVIEWING PATIENTS HISTORY AND STATING PATIENT MIGHT NEED LHC IF CONDITION CONTINUES WITHIN THE NEXT FEW DAYS. AMIO GTT TO BE CONTINUED. MD STATED CPAP TRIAL CAN BE ATTEMPTED AND PRN METOPROLOL TO BE ADMINISTERED NEEDED ONCE OK WITH PULMONARY. -PATIENTS BP LABILE, READINGS SHOWING SBP 180-150, THEN SUDDEN DECREASED TO SBP 90-100'S. MORNING CLONIDINE HELD, LEVO GTT TO BE RESTARTED IF NEEDED. AWARE. SEE NEW ORDERS.
--- NOTE | 2018-11-25 11:22 | NUR ---
MD DR CROCKER UPDATED ON PATIENT STATUS. STATED FAMILY IS PLANNING ON TERMINAL WEAN, HE WILL BE CALLING CYRUS THORNTON TO VERIFY PLAN OF CARE. MD TO CALL BACK. FAMILY AT BEDSIDE PATIENTS SISTER AT BEDSIDE REQUESTING INFORMATION, INFORMED FAMILY AT BEDSIDE DETAILS CAN BE PROVIDED BY NORBERTO AT THIS TIME, NOTIFIED THAT MD WILL BE CONTACTING FAMILY SHORTLY.
--- NOTE | 2018-11-25 11:51 | NUR ---
CODE STATUS DR. CROCKER CALLED STATING HE SPOKE TO NORBERTO CYRUS AND STATED FAMILY WOULD LIKE TO MAKE PATIENT A DNR, CURRENT TX TO CONTINUE BUT NO FURTHER MEDICATIONS TO BE ADDED. ALSO STATING FAMILY IS WISHING TO DO A TERMINAL WEAN ON 11/26 AT 1000. CALLED DAUGHTER TO VERIFY CODE STATUS WISHES, NORBERTO WOULD LIKE TO SET PATIENT DNR, NO FURTHER TX TO BE ADDED AND SHE STATED TERMINAL WEAN MIGHT HAPPEN LATER TONIGHT DUE TO FAMILY PRESENTS TODAY. CODE STATUS CHANGED TO DNR, AND WITNESSED BY SECOND NURSE VIA PHONE.
--- NOTE | 2018-11-25 16:07 | NUR ---
REVIEWED WITH FAMILY PROCESS OF TERMINAL WEAN, DAUGHTER NORBERTO AWARE PATIENT HAS NOT BEEN TOLERATING COMING OFF SEDATION AND HER CONDITION IS POOR. PER DAUGHTER, HER ADVANCE DIRECTIVE IS TO BE A DNR AND NOT BE MECHANICAL VENTILATOR, SUCH TRACHEOSTOMY. DAUGHTER CONTINUES TO STATE THEY ARE WILL LIKELY DO TERMINAL WEAN TONIGHT OR TOMORROW IN A.M.
--- NOTE | 2018-11-25 18:40 | NUR ---
CYRUS THORNTON AND FAMILY REQUESTING TO PERFORM TERMINAL WEAN. PATIENT TO BE COMFORT MEASURES ONLY. FAMILY AT BEDSIDE. MD AWARE.
[2018-11-25] MEDS ORDERED: MORPHINE SULFATE 4 MG/ML SYR/VIAL IV PRN ×2 (18:45→22:00)
[2018-11-25] MEDS ORDERED: MORPHINE SULF INJ 2 MG/ML SYRINGE 1ML ONE (18:50)
--- NOTE | 2018-11-25 18:55 | NUR ---
Respiratory note: PT TERMINALLY EXTUBATED AT 1855 PT PLACED AT 2LPM NC FOR COMFORT. KENRICK KARIMI AT BEDSIDE.
--- NOTE | 2018-11-25 18:55 | NUR ---
Dr. Salomon spoke with family regarding wishes to terminally wean patient. Family understands all aspects of weaning and understands that the outcome is . All questions and concerns addressed by Provider and by nursing. Family at bedside. Comfort cart provided. PRN medications given for comfort. NOTE: R.T at bedside to remove ETT.
[2018-11-25] MEDS: LORazepam 2MG/ML-1ML VIAL IV PRN ×3 (19:18→22:56)
--- NOTE | 2018-11-25 20:00 | NUR ---
Opening Shift Note Assumed care of patient, lying on bed with eyes closed, arousal by voice, no eyes contact. Breathing on O2 NC 2LPM, No S/S of distress/SOB. TLC at right subclavian, CDI site, flushed well. Saline lock 22G on right hand, slightly sluggish. Acosta's cath hung to gravity with clear yellowish urine. Bed in low position, call light within reach, fall and safety precaution in pace. Will continue care for comfort measures. Family at bedside.
[2018-11-25] MEDS: MORPHINE SULFATE 4 MG/ML SYR/VIAL IV PRN ×2 (20:18→21:20)
[2018-11-25] MEDS: hydrALAZINE HCL 20 MG/ML VL IV PRN (20:41)
--- NOTE | 2018-11-25 21:30 | NUR ---
Elimination Pt had a moderate amount of semi-soft dark greenish brown stool. Libia area cleaned, z-guard applied, skin intact, no new changes. Re-position Pt for comfort. Continue care.
--- NOTE | 2018-11-25 21:43 | NUR ---
Restless/ Hypertension After extubated, Pt started to wake up, eyes opened/moan/increased HR. Medicated Pt with Morphine and Ativan PRN and Apresoline IV PRN. Pt still wakes up and has hypertension. Paged Dr. Salomon and notified condition. 21.50pm Umm GALDAMEZ called back, new orders received, TORB and verified. Will administer medication as order. Continue care.
[2018-11-25] MEDS ORDERED: METOPROLOL TARTRATE 1MG/1ML-5ML VIAL IV PRN (22:00)
[2018-11-25] MEDS ORDERED: MIDAZOLAM HCL 1MG/1ML-2 ML VIAL IV ONE (22:00)
[2018-11-25] MEDS ORDERED: MORPHINE SULFATE 4 MG/ML SYR/VIAL IV ONE (22:00)
[2018-11-25] MEDS ORDERED: MIDAZOLAM HCL 1MG/1ML-2 ML VIAL ONE (22:19)
[2018-11-25] MEDS ORDERED: METOPROLOL TARTRATE 1MG/1ML-5ML VIAL IV ONE (22:21)
--- NOTE | 2018-11-25 23:00 | NUR ---
Discard sedation medicines Fentanyl, Midazolam, propofol IV left from Pt's d/c co-witnesses and discarded with Keon CHOUDHARY.
[2018-11-26] VITALS (35 sets, daily range): BP systolic 190–240; BP diastolic 56–113
[2018-11-26] MEDS: LORazepam 2MG/ML-1ML VIAL IV PRN ×3 (00:08→15:15)
[2018-11-26] MEDS: MORPHINE SULFATE 4 MG/ML SYR/VIAL IV PRN (00:08)
--- NOTE | 2018-11-26 00:45 | NUR ---
Restless/ Hypertension Pt lying on bed with eyes opened, still moaning and restless despite Ativan, Morphine q1-2hr PRN and Metoprolol IV PRN. HR 100's sinus tachycardia, BP 233/95, RR even and nonlabored, O2sat on O2NC 2LPM 95%. Family at bedside addressed concerns and asked for more medication to help Pt rest. Paged Dr. Salomon and notified Pt's condition. Addendum: 11/26/18 at 0222 by Ben Padilla RN 01.10am Umm GALDAMEZ called back, Pt's condition update. ordered Morphine 4mg IV now and Morphine 5mg/hr IV drip for comfort measures. Vasotec 1.25mg IV PRN q6hr if SBP> 180mmHg. TORB and verified correct. Continue care and monitoring.
[2018-11-26] MEDS ORDERED: MORPHINE SULFATE ONE (01:24)
[2018-11-26] MEDS ORDERED: ENALAPRILAT 1.25 MG/ML-1ML VIAL IV ONE (01:26)
[2018-11-26] MEDS ORDERED: ENALAPRILAT 1.25 MG/ML-1ML VIAL IV PRN ×2 (01:30→02:45)
[2018-11-26] MEDS ORDERED: MORPHINE SULFATE 4 MG/ML SYR/VIAL IV ONE ×2 (01:30→14:45)
--- NOTE | 2018-11-26 01:50 | NUR ---
Morphine IV drip 5mg/hr for comfort measures started. Nisa (DTR) at bedside, acknowledged new orders. Co-signed Med with Charge nurse Keon, will chart in the [employer] system later due to the Pharmacy have not verified medicine since 10pm. Discussed the medication and order with the Pharmacist montessori toddler teacher, pharmacist will verified medicines in the EMAR.
--- NOTE | 2018-11-26 02:30 | NUR ---
Condition update Pt started to rest, less moaning and agitation. BP after Vasotec IV 199/87, HR 105 sinus tachycardia. Continue care.
[2018-11-26] MEDS ORDERED: METOPROLOL TARTRATE 1MG/1ML-5ML VIAL IV PRN (02:45)
[2018-11-26] MEDS: MORPHINE SUL PCA 50 ML IV SCH ×3 (03:39→23:13)
[2018-11-26] MEDS: hydrALAZINE HCL 20 MG/ML VL IV PRN ×2 (03:52→12:57)
--- NOTE | 2018-11-26 05:15 | NUR ---
Elimination/ Pt bathe Pt had a large semi-soft dark brown stool. Libia area cleaned, z-guard applied to incontinence dermatitis area, no skin breakdown. Partial sponge bath done to help decreased fever. Complete linens changed. Re-position for comfort. Ice packs applied after bed bath. Continue care.
--- NOTE | 2018-11-26 07:35 | NUR ---
OPENING SHIFT NOTE Report received from Adilia CHOUDHARY, care assumed. Patient is awake. Patient does not track or follow commands at this time. Low grade temp 99.2, ice packs applied. Pupils reactive. Extremities weak bilaterally. Lungs clear anterior but crackles noted posteriorly. Patient on 2 l nasal cannula, no shortness of breath noted at this time. Blood pressure trending high, 200's systolic. MD has been made aware and patient give PRN, but no resolution. HR 90-100's, sinus. Pulses palpable bilaterally. Bowel sounds hypoactive. Acosta catheter noted, hung to gravity. See skin assessment. Patient repositioned on side. Optifoam placed on sacrum for prevention. Bed locked in lowest position, with call light within reach. Patient family at bedside, updated on poc. Continue to monitor.
--- NOTE | 2018-11-26 08:30 | NUR ---
PULMONARY UPDATE called for update. He is aware of terminal wean performed yesterday. No new orders received.
--- NOTE | 2018-11-26 09:20 | NUR ---
PAGED, AWAITING CALL BACK.
--- NOTE | 2018-11-26 09:44 | NUR ---
PAGED, AWAITING CALL BACK.
--- NOTE | 2018-11-26 09:47 | NUR ---
MD RETURNED CALL Dr.Moqattash Isabel, is aware of blood pressure trends, morphine gtt, and mentation/neuro status. He has given downgrade orders. He will speak with family when he rounds.
--- NOTE | 2018-11-26 10:04 | NUR ---
CARDIOLOGY ROUNDS rounding at bedside. He is aware of blood pressure trends, and pain medication gtt. No orders received at this time.
--- NOTE | 2018-11-26 11:11 | NUR ---
PAGED Regarding hypertension, attempting to obtain more medication to assist with decreasing blood pressure. Awaiting call back.
--- NOTE | 2018-11-26 11:24 | NUR ---
REPORT Report called to Daniele CHOUDHARY on central wing.
--- NOTE | 2018-11-26 11:25 | NUR ---
MORPHINE Morphine gtt placed in [employer] TEACHER pump. Programed according to ordered dose.
--- NOTE | 2018-11-26 11:51 | NUR ---
ICU patient trans to floor [facility] transferred to [facility] via [facility] on monitor worker and portable 02. All patient medications and personal belongings transferred with patient to receiving floor. Patient care transferred to [place]. Family at bedside. No distress noted. Bed locked in lowest position, bed alarm in place.
--- NOTE | 2018-11-26 11:55 | NUR ---
Care assumed. Patient eyes is open, does not follow commands at this time. No shortness of breath noted at this time. Blood pressure trending high, 200's systolic. Patient family at bedside, updated on POC. Continue to monitor.
--- NOTE | 2018-11-26 14:30 | NUR ---
Family was provided with mouth swabs for mouth care.
--- NOTE | 2018-11-26 14:30 | NUR ---
Spoke to Doctor Damir Salomon, informed him regarding patient's blood pressure is on 200's systolic. Dr. Salomon states to stop taking vital signs and to keep patient comfortable. Dr. Salomon also signed the DNR form, filed on hard chart. Dr. Salomon states that he is going to have the patient evaluated for hospice.
--- NOTE | 2018-11-26 15:00 | NUR ---
Received call from Lois from [facility], informing that she is coming to talk to the family at bedside at about 5-5:30 pm. Family at bedside informed.
--- NOTE | 2018-11-26 15:37 | NUR ---
Nutrition Follow-up Notes Wt.: 49.6 kg today. Noted 7.6 kg weight loss in last 3 days likely d/t ? fluid loss aeb negative I & Os for past few days. Pt's terminally extubated yesterday, on oxygen via nasal cannula, currently NPO, off from EN support, for comfort measures only, per nursing. Est. Needs based on IBW (59 kg): 1450 kcal to 1750 kcal (25-30 kcal/kgIBW), 59 gms to 71 gms pro (1.0-1.2 gms/kgBW). Will continue to monitor pertinent labs and reassess nutrient needs prn Labs: No new labs today 11/25/18 Gluc 211 H, BUN 36 H, CO2 34 H; ALB 2.3 L Skin: Bandar scale 13, mod risk, pt's perirectal excoriation per horse riding coach or instructor. Pls refer to recruiter manager's notes 11/18/18 for further details re: tx plans. GI: Pt had 2 BM this morning per horse riding coach or instructor. PES: Partially resolved: Increased nutrient needs r/t current/chronic medical condition aeb intubated, sedated, NPO. Altered nutrition related lab values r/t current/chronic medical condition aeb hypocapnia, hypokalemia, hyperchloremia, elev. renal labs hypocalcemia and severe hypoalbuminemia Will continue to monitor NPO status, skin status, pertinent labs and weight trend. F/u in 2 to 3 days. Rec.: 1.) If still NPO, consider to resume EN support at lower rate and gradually increase feeding of Jevity 1.2 Harish to 50 ml/hr goal rate as tolerated if medically appropriate. 2.) If Albumin/Prealbumin level continue trending down, not tolerating EN support, consider PN support, start on Clinimix @ 42 ml/hr to provide 510 kcal, 340 NPCs and 42.5 gms pro. 3.) Advance gradually to oral diet when medically appropriate. 4.) Refer to RD for further nutrition educ. and weight monitoring upon discharge. 5.) Continue current plan of care.
--- NOTE | 2018-11-26 18:00 | NUR ---
Patient had a small bowel movement, patient was changed and repositioned assisted by 2 persons. Patient appears comfortable.
--- NOTE | 2018-11-26 19:00 | NUR ---
Closing note Patient resting in bed, no signs of respiratory distress.
--- NOTE | 2018-11-27 07:20 | NUR ---
Opening Shift Note Assumed care of patient, asleep. Family at bedside. No S/S of distress/SOB. Will continue to monitor for changes Q1hr and PRN.
--- NOTE | 2018-11-27 07:22 | NUR ---
Called pharmacy, spoke to Nu, requested to prepare Morphine for THREAD SINGER pump. Nu states "okay".
[2018-11-27] MEDS: MORPHINE SUL PCA 50 ML IV SCH (09:08)
--- NOTE | 2018-11-27 10:25 | NUR ---
Received a call from Lois from [facility], she requested to send her the discharge order. Addendum: 11/27/18 at 1149 by KAYLA BAH RN cont. Abreu requested the discharge order so she can set up for transportation.
--- NOTE | 2018-11-27 10:33 | NUR ---
Discharge order sent through fax to [facility] addressed to Lois.
--- NOTE | 2018-11-27 11:10 | NUR ---
Received a call from Lois from [facility], she confirmed that she received the fax with the discharge order for hospice. Lois states that the order needs to be signed by doctor. She states that she will contact Dr. Damir Salomon to inform him.
--- NOTE | 2018-11-27 11:50 | NUR ---
Spoke to Hospice nurse from [facility], states she was to do an evaluation if patient is hospice appropriate.
--- NOTE | 2018-11-27 12:01 | NUR ---
Hospice nurse from [facility] at bedside talking to family.
--- NOTE | 2018-11-27 12:30 | NUR ---
Spoke to entry level marketing representative, states that they have to set up equipment first at patient's house before they will set up the transportation.
[2018-11-27] MEDS: LORazepam 2MG/ML-1ML VIAL IV PRN (12:50)
--- NOTE | 2018-11-27 13:59 | NUR ---
assessment Patient is a 73 year old female who is confused. Per patients daughter Nisa patient lived home alone prior to admission and functioned independently. Per Nisa patient will return home with family on discharge. Patient has no POA. I informed Nisa there is a consult for hospice eval. Per Nisalilia Martinez from [facility] came to the hospital per . Nisa signed consents with [facility] last night. Nirmala from [facility] evaluated patient at bedside today. General transport to transport patient home at 4pm today post discharge. Nisa has been notified and agrees to discharge plan home on hospice. Addendum: 11/27/18 at 1604 by Alyssa HOWELL Amended: Links added.
--- NOTE | 2018-11-27 15:20 | NUR ---
Discharge instructions given to family as ordered. Patient going home with service from [facility]. All questions and concerns addressed. Family verbalized understanding. PICC line removed with catheter intact, pressure dressing applied. Left to catheter in per request by hospice nurse. Patient was transported to vehicle via gurney with all personal belongings, accompanied by staff and family member. No distress noted at time of departure.
--- NOTE | 2018-11-27 15:25 | NUR ---
WASTED MORPHINE SULFATE BIRDCAGE ASSEMBLER 22 ML, VERIFIED BY CHARGE NURSE, JHONATAN.
== END 2018-11-27 15:20 | disposition hospice, home (50) | DRG 870 ==
LOC: EDBD 22:35 → ER 22:37 → OVERFLOW 11-15 02:49 → ICU WEST 11-18 17:44 → CENTRAL 11-26 11:45
PROVIDERS: ADMIT Nurse Practitioner; ATTEND Hospitalist
PROC: 5A09357 Assistance with Respiratory Ventilation, Less than 24 Consecutive Hours, Continuous Positive Airway Pressure (ICD-10-PCS; 2018-11-14)
PROC: 5A1955Z Respiratory Ventilation, Greater than 96 Consecutive Hours (ICD-10-PCS; principal; 2018-11-15)
PROC: 0BH17EZ Insertion of Endotracheal Airway into Trachea, Via Natural or Artificial Opening (ICD-10-PCS; 2018-11-15)
PROC: 02H633Z Insertion of Infusion Device into Right Atrium, Percutaneous Approach (ICD-10-PCS; 2018-11-15)
DX: A41.9 Sepsis, unspecified organism (principal); R65.21 Severe sepsis with septic shock; I21.4 Non-ST elevation (NSTEMI) myocardial infarction; J96.01 Acute respiratory failure with hypoxia; J18.1 Lobar pneumonia, unspecified organism; J44.1 Chronic obstructive pulmonary disease with (acute) exacerbation; J44.0 Chronic obstructive pulmonary disease with (acute) lower respiratory infection; I13.0 Hypertensive heart and chronic kidney disease with heart failure and stage 1 through stage 4 chronic kidney disease, or unspecified chronic kidney disease; N17.9 Acute kidney failure, unspecified; I47.1 Supraventricular tachycardia; N18.3 Chronic kidney disease, stage 3 (moderate); I44.7 Left bundle-branch block, unspecified; I25.10 Atherosclerotic heart disease of native coronary artery without angina pectoris; E87.6 Hypokalemia; I50.9 Heart failure, unspecified; D63.8 Anemia in other chronic diseases classified elsewhere; I16.0 Hypertensive urgency; I48.91 Unspecified atrial fibrillation; T38.0X5A Adverse effect of glucocorticoids and synthetic analogues, initial encounter; F32.9 Major depressive disorder, single episode, unspecified; F41.9 Anxiety disorder, unspecified; M19.90 Unspecified osteoarthritis, unspecified site; Z90.710 Acquired absence of both cervix and uterus; Z95.5 Presence of coronary angioplasty implant and graft; Z79.899 Other long term (current) drug therapy; Z79.82 Long term (current) use of aspirin; Z87.11 Personal history of peptic ulcer disease; Y92.89 Other specified places as the place of occurrence of the external cause; I25.2 Old myocardial infarction
CPT/HCPCS: 31500; 36415; 36600; 51702; 71045; 71250; 80048; 80053; 81001; 82805; 82962; 83605; 83735; 83880; 84132; 84484; 85025; 85379; 85610; 85730; 87040; 87070; 87081; 87086; 87205; 87804; 93005; 93306; 93970; 94002; 94003; 94640; 94660; 94761; 96365; 96366; 96368; A4618; A6257; C9113; G0378; J0330; J0696; J1450; J1815; J2185; J2250; J2543; J2704; J3480; J7060